=== PATIENT | male | born 1990 | race African-American/Black ===

== ENCOUNTER 2020-08-08 21:53 | Emergency (ER) | payer BC, OTHER, SELFPAY ==
[2020-08-08 22:10] VITALS: BP 134/74; PULSE 75; RESP 16; TEMP 37.2; O2SAT 97; BMI 45.4
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
--- NOTE | 2020-08-08 22:31 | XR_ITS ---
EXAMINATION: XR FOREARM, LEFT CLINICAL INFORMATION: Rule out foreign body in left forearm. Cut with glass COMPARISON: None TECHNIQUE: AP and lateral views of the left forearm were obtained. FINDINGS: The bones and soft tissues are normal. No fracture. Imaged portions of the elbow and wrist are unremarkable. No radiopaque foreign body seen. XR/XR forearm LT 2V IMPRESSION: No radiopaque foreign body seen, although many forms of glass are not radiopaque.
== END 2020-08-08 23:40 | disposition home or self-care (01) ==
PROVIDERS: Emergency Provider Emergency Medicine; PCP Internal Medicine
DX: S51.812A Laceration without foreign body of left forearm, initial encounter (principal); S50.812A Abrasion of left forearm, initial encounter; M79.632 Pain in left forearm; W25.XXXA Contact with sharp glass, initial encounter; Y93.9 Activity, unspecified; Y92.009 Unspecified place in unspecified non-institutional (private) residence as the place of occurrence of the external cause; Y99.9 Unspecified external cause status; Z23 Encounter for immunization
CPT/HCPCS: 73090; 90471; 90715; 99283; 99284

== ENCOUNTER 2020-08-19 19:13 | Emergency (ER) | payer BC, OTHER, SELFPAY ==
[2020-08-19 19:32] VITALS: BP 143/56; PULSE 77; RESP 18; TEMP 36.1; O2SAT 98; BMI 33.0
--- NOTE | 2020-08-19 20:23 | ED_ITS ---
HPI - Wound/Laceration General Chief Complaint: Wound/Laceration Stated Complaint: Staple removal Source: patient Mode of arrival: ambulatory Limitations: no limitations History of Present Illness HPI narrative: 29-year-old male with no significant past medical history presents to have 2 michael removed from his left arm. He has had no complaints, states that the wound is healing well, denies fevers, chills, and any other concerning symptoms. Related Data Allergies Allergy/AdvReac Type Severity Reaction Status Date / Time No Known Allergies Allergy Verified 08/08/20 22:31 Review of Systems Review of Systems: Constitutional: No Fever, No Chills ENT/Mouth: No Ear Pain, No Nasal Congestion, No sore throat Eyes: No Eye Pain, No Swelling, No Redness Cardiovascular: No Chest Pain, No SOB Respiratory: No Cough, No Sputum, No Dyspnea Gastrointestinal: No Nausea, No Vomiting, No Diarrhea, No Hematochezia, No Melena Genitourinary: No Dysuria, No Urinary Frequency, No Hematuria Musculoskeletal: No Myalgias Skin: No Skin Lesions, No rash Neuro: No Weakness, No Numbness, No Paresthesias, No Dizziness, No Headache Psych: No Anxiety, no Depression, no SI/HI Heme/Lymph: No Lymphadenopathy Endocrine: No Polyuria, No Polydipsia Yes all other systems are reviewed and are negative [facility] Past Medical History Attestation statement: The following information was validated with the patient. Medical History No known health problems Social History Social History Advance Directives: No Physical Exam Vital Signs: Vital Signs: Last Vital Signs Temp 97.0 F 08/19/20 19:32 Pulse 77 08/19/20 19:32 Resp 18 08/19/20 19:32 BP 143/56 H 08/19/20 19:32 Pulse Ox 98 08/19/20 19:32 Body Mass Index 33.0 Appearance: Alert. Oriented X3. No acute distress. Eyes: Pupils equal, round and reactive to light. ENT: Pharynx normal. Neck: Normal inspection. Neck supple. CVS: Normal heart rate and rhythm. Pulses normal. Respiratory: No respiratory distress. Breath sounds normal. Abdomen: Soft and nontender. Skin: Skin warm and dry. Normal skin color. Normal skin turgor. Extremities: No lower extremity edema. Neuro: No motor deficit. No sensory deficit. Course Course Course Narrative: 29-year-old male presents for staple removal. Two michael removed from the left proximal forearm. Patient tolerated procedure well. Wound well healed well approximated no indication of infection. No further care is needed. Patient verbalized understanding of and agrees to plan of care to discharge home. MDM - Wound/Laceration Differential Diagnosis Differential diagnosis: Likely laceration Medical Records Attestation: I reviewed the patient's medical records. Discharge Plan Discharge Clinical Impression: Encounter for removal of michael Patient Disposition: Home, Self-Care Instructions: Staple Care (ED) Additional Instructions: we removed 2 michael on your left arm. your wound has healed very well. No further care is needed at this time. Thank you for choosing this emergency department for evaluation. Please follow-up with primary care physician as needed. Return to the emergency department for any new, concerning, or worsening symptoms. Interventions: ED Discharge Assessment Last Done: 08/19/20 20:41 Discharge Date/Time: 08/19/20 20:45
== END 2020-08-19 20:45 | disposition home or self-care (01) ==
PROVIDERS: Emergency Provider Internal Medicine
DX: M79.602 Pain in left arm (principal); Z48.02 Encounter for removal of sutures
CPT/HCPCS: 99283

== ENCOUNTER 2021-02-12 19:40 | Emergency (ER) | payer OTHER, SELFPAY ==
--- NOTE | ~2021-02-12 | XR_ITS ---
EXAMINATION: PORTABLE CHEST 1 VIEW CLINICAL INFORMATION: Chest pain . COMPARISON: No recent pertinent prior studies are available for comparison. TECHNIQUE: Portable frontal view of the chest was obtained. FINDINGS: The lungs are hypoexpanded. No focal infiltrate, effusion, edema, or pneumothorax. Cardiac and mediastinal silhouettes are within normal limits for technique. No acute bony abnormality seen. XR/XR chest 1V IMPRESSION: No evidence of acute disease.
[2021-02-12 19:48] VITALS: BP 137/87; PULSE 96; RESP 20; TEMP 36.7; O2SAT 98; BMI 45.4
--- NOTE | 2021-02-12 21:31 | ECG_ITS ---
Test Reason : CHEST PAIN Blood Pressure : / mmHG Vent. Rate : 095 BPM Atrial Rate : 095 BPM P-R Int : 170 ms QRS Dur : 094 ms QT Int : 336 ms P-R-T Axes : 030 -32 007 degrees QTc Int : 422 ms Normal sinus rhythm Left axis deviation Minimal voltage criteria for LVH, may be normal variant Abnormal ECG No previous ECGs available Referred By: Serenity Tan Electronically Signed By:JOHNY LEBLANC MD
--- NOTE | 2021-02-12 21:34 | ED_ITS ---
HPI - Chest Pain General Chief Complaint: Chest Pain Stated Complaint: chest pain Time Seen by Provider: 02/12/21 21:09 Source: patient Mode of arrival: ambulatory History of Present Illness HPI narrative: 30-year-old male without significant past medical history presents with squeezing chest pain since last night that has gotten worse, no nradiating, no prior cardiac history, denies any family history of cardiac , no recent travel/calf swelling/pain. 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 Patient denies any trauma, lifting of heavy packages, and denies any improvement or worsening with change in position from sitting to lying down. However, pain does get worse with deep inspiration and movement. Patient did try [id number] Tylenol, 1 g, once this morning. Related Data Allergies Allergy/AdvReac Type Severity Reaction Status Date / Time No Known Allergies Allergy Verified 08/08/20 22:31 Review of Systems Review of Systems: Pertinent positives and negatives as stated in HPI 10 point review of systems is otherwise negative. PMFSH Past Medical History Source: nursing notes reviewed Medical History No known health problems Social History Social History Advance Directives: No Advance Directives Information Provided: Yes Physical Exam Vital Signs: Vital Signs: Last Vital Signs Temp 98.1 F 02/12/21 19:48 Pulse 96 02/12/21 19:48 Resp 20 02/12/21 19:48 BP 137/87 02/12/21 19:48 Pulse Ox 98 02/12/21 19:48 Body Mass Index 45.4 VITAL SIGNS: Reviewed. GENERAL: Well developed, well nourished, in no acute distress. HEAD: Normocephalic/atraumatic EYES: PERRLA, EOMI EARS: Ext canals without abnormality NOSE: Nares patent bilateral OROPHARYNX: no oral lesions noted, posterior pharynx clear NECK: Supple, no adenopathy LUNGS: Normal breath sounds. No adventitious sounds or accessory muscle use. SpO2<98> CARDIOVASCULAR: Regular rate and rhythm without noted murmurs ABDOMEN: Soft, non-tender, non-distended with bowel sounds. MUSCULOSKELETAL: No tenderness, deformities, or effusions noted on gross inspection. EXTREMITIES: No cyanosis, clubbing or edema. SKIN: Inspection of the skin reveals no rashes NEUROLOGIC: Alert and oriented x 4. Course Course Course Narrative: 30-year-old male with history and clinical presentation most consistent with costochondritis verses anterior chest wall muscle strain and low clinical suspicion for pericarditis or cardiopulmonary etiologies. Pain is in consistent with a gastritis/GERD etiology. On review of all investigations there are no acute findings and on re-evaluation patient reports a reduction pain from 05/06 down to 12/04. All results and findings were discussed with him at bedside the was discharged in stable condition. MDM - Chest Pain Lab Data Result diagrams: 02/12/21 21:54 02/12/21 21:54 Labs: Lab Results 02/12/21 02/12/21 02/12/21 Range/Units 21:54 21:54 21:54 WBC 11.9 H (4.8-10.8) X10*3/uL RBC 4.84 (4.60-5.80) X10*6/uL Hgb 14.2 (14.0-18.0) g/dl Hct 43.2 (42-52) % MCV 89.3 (80-98) fL MCH 29.3 (27.0-33.0) pg MCHC 32.9 (31.0-36.0) g/dl RDW 11.8 (11.0-16.0) % Plt Count 364 (160-400) X10*3/uL MPV 9.6 (9.4-12.4) fL Immature Gran % (Auto) 0.3 (0.0-0.4) % Neut % (Auto) 64.1 (45-73) % Lymph % (Auto) 26.6 (20-40) % [place] % (Auto) 7.4 (2-11) % Eos % (Auto) 1.2 (0-4) % Baso % (Auto) 0.4 (0-2) % Lymph # (Auto) 3.2 (1.2-4.9) X10*3/uL [place] # (Auto) 0.9 (0.1-1.2) X10*3/uL Eos # (Auto) 0.1 (0.0-0.4) X10*3/uL Baso # (Auto) 0.1 (0.0-0.2) X10*3/uL Abs Immat Gran (auto) 0.04 H (0.00-0.03) X10*3/uL Absolute Neuts (auto) 7.7 (2.0-8.3) X10*3/uL Absolute Nucleated RBC 0.000 (0.0-0.012) X10*3/uL Nucleated RBC % (auto) 0.0 (0.0-0.2) /100WBC PT 12.9 (10.8-13.0) SEC INR 1.1 (0.9-1.1) D-Dimer < 200 NG/ML Sodium 139 (135-145) mmol/L Potassium 4.1 (3.3-5.1) mmol/L Chloride 105 (96-108) mmol/L Carbon Dioxide 26 (22-29) mmol/L Anion Gap 12 (12-20) BUN 13 (9-16) mg/dL Creatinine 1.00 (0.5-1.4) mg/dL Estim Creat Clear Calc 162.2 Estimated GFR > 60 Random Glucose 93 (60-115) mg/dL Calcium 9.3 (8.4-10.2) mg/dL Total Bilirubin 0.5 (0.0-1.0) mg/dL AST 18 (5-37) U/L ALT 20 (0-40) U/L Alkaline Phosphatase 63 (39-117) U/L Troponin I High Sens (<3.5-35.0) ng/L Total Protein 7.0 (6.5-8.0) g/dL Albumin 4.2 (3.5-5.0) g/dL Lipase 26 (8-78) U/L / Range/Units 21:54 WBC (4.8-10.8) X10*3/uL RBC (4.60-5.80) X10*6/uL Hgb (14.0-18.0) g/dl Hct (42-52) % MCV (80-98) fL MCH (27.0-33.0) pg MCHC (31.0-36.0) g/dl RDW (11.0-16.0) % Plt Count (160-400) X10*3/uL MPV (9.4-12.4) fL Immature Gran % (Auto) (0.0-0.4) % Neut % (Auto) (45-73) % Lymph % (Auto) (20-40) % [place] % (Auto) (2-11) % Eos % (Auto) (0-4) % Baso % (Auto) (0-2) % Lymph # (Auto) (1.2-4.9) X10*3/uL [place] # (Auto) (0.1-1.2) X10*3/uL Eos # (Auto) (0.0-0.4) X10*3/uL Baso # (Auto) (0.0-0.2) X10*3/uL Abs Immat Gran (auto) (0.00-0.03) X10*3/uL Absolute Neuts (auto) (2.0-8.3) X10*3/uL Absolute Nucleated RBC (0.0-0.012) X10*3/uL Nucleated RBC % (auto) (0.0-0.2) /100WBC PT (10.8-13.0) SEC INR (0.9-1.1) D-Dimer NG/ML Sodium (135-145) mmol/L Potassium (3.3-5.1) mmol/L Chloride (96-108) mmol/L Carbon Dioxide (22-29) mmol/L Anion Gap (12-20) BUN (9-16) mg/dL Creatinine (0.5-1.4) mg/dL Estim Creat Clear Calc Estimated GFR Random Glucose (60-115) mg/dL Calcium (8.4-10.2) mg/dL Total Bilirubin (0.0-1.0) mg/dL AST (5-37) U/L ALT (0-40) U/L Alkaline Phosphatase (39-117) U/L Troponin I High Sens < 3.5 (<3.5-35.0) ng/L Total Protein (6.5-8.0) g/dL Albumin (3.5-5.0) g/dL Lipase (8-78) U/L ECG Data ECG #1: Attestation: I personally reviewed and interpreted this ECG as follows: Prior ECG tracings: not available for review Interpretation: Normal sinus rhythm, HR-95, no evidence of acute ischemia, DE/QRS/QTC are within normal limits. Discharge Plan Discharge Clinical Impression: Atypical chest pain, Costalchondritis Patient Disposition: Home, Self-Care Instructions: Costochondritis (ED) Additional Instructions: 1. Tylenol 1000 mg, orally, every 6 hours as needed for pain control. Do not exceed 4000 mg within 24 hours. 2. Ibuprofen 400 mg, orally with milk or food, every 6 hours as needed for pain control. 3. Lidocaine patch, these are available in every [facility], apply to area of maximal tenderness as directed on the outside packaging. 4. Please follow up with the primary care provider in the next 2-3 days for re- evaluation. Return to the emergency room should you experience any acute worsening of symptoms. Referrals: Karla Azevedo MD [Primary Care Provider] - 2 days (Re-evaluation after treated for suspected costochondritis.)
[2021-02-12] MEDS: Ketorolac Tromethamine 15 MG/ML VIAL IVPUSH (21:57)
[2021-02-12] MEDS: Acetaminophen 325 MG TABLET 975 MG PO (21:57)
[2021-02-12] MEDS: Lidocaine HCl Viscous 2 % 15 ML SOLUTION 10 ML MUCOUS MEM (21:57)
[2021-02-12] MEDS: Lidocaine 4 % Patch ADH..PATCH 1 PATCH TRANSDERMA (21:58)
[2021-02-12] MEDS: Magnesium Hydrox/Alum Hydrox 30 ML ORAL.SUSP PO (21:58)
[2021-02-12 21:59] LABS: MANUAL DIFF FLAG NO
[2021-02-12 22:00] LABS: Basophils Absolute Auto 0.1 X10*3/uL (0.0-0.2); Basophils Percent Auto 0.4 % (0-2); Eosinophils Absolute Auto 0.1 X10*3/uL (0.0-0.4); Eosinophils Percent Auto 1.2 % (0-4); Hematocrit 43.2 % (42-52); Hemoglobin 14.2 g/dl (14.0-18.0); Imm Gran Abs Auto 0.04 X10*3/uL (0.00-0.03); Imm Gran Pct Auto 0.3 % (0.0-0.4); Lymphocytes Absolute Auto 3.2 X10*3/uL (1.2-4.9); Lymphocytes Percent Auto 26.6 % (20-40); Mean Corpuscular HGB Conc 32.9 g/dl (31.0-36.0); Mean Corpuscular Hemoglobin 29.3 pg (27.0-33.0); Mean Corpuscular Volume 89.3 fL (80-98); Mean Platelet Volume 9.6 fL (9.4-12.4); Monocytes Absolute Auto 0.9 X10*3/uL (0.1-1.2); Monocytes Percent Auto 7.4 % (2-11); Neutrophils Absolute Auto 7.7 X10*3/uL (2.0-8.3); Neutrophils Percent Auto 64.1 % (45-73); Platelet Count 364 X10*3/uL (160-400); Red Blood Count 4.84 X10*6/uL (4.60-5.80); Red Cell Distribution Width 11.8 % (11.0-16.0); White Blood Count 11.9 X10*3/uL (4.8-10.8)
[2021-02-12 22:17] LABS: INTERNATIONAL NORM RATIO 1.1 (0.9-1.1); Prothrombin Time 12.9 SEC (10.8-13.0)
[2021-02-12 22:33] LABS: Alanine Aminotransferase 20 U/L (0-40); Albumin Level 4.2 g/dL (3.5-5.0); Alkaline Phosphatase 63 U/L (39-117); Anion Gap 12 (12-20); Aspartate Amino Transferase 18 U/L (5-37); Bilirubin Total 0.5 mg/dL (0.0-1.0); Blood Urea Nitrogen 13 mg/dL (9-16); Calcium 9.3 mg/dL (8.4-10.2); Carbon Dioxide 26 mmol/L (22-29); Chloride 105 mmol/L (96-108); Creatinine Clr Calc Pharmacy 162.2; Estimated Glomerular Filt Rate > 60; Glucose Random 93 mg/dL (60-115); Lipase 26 U/L (8-78); Potassium 4.1 mmol/L (3.3-5.1); Sodium 139 mmol/L (135-145)
[2021-02-12 22:39] LABS: Troponin-I High Sensitivity < 3.5 ng/L (<3.5-35.0)
[2021-02-12 23:13] LABS: D Dimer < 200 NG/ML
[2021-02-12 23:43] VITALS: PULSE 76; RESP 18
== END 2021-02-12 23:49 | disposition home or self-care (01) ==
PROVIDERS: Emergency Provider Student in an Organized Health Care Education/Training Program; PCP Internal Medicine
DX: R07.89 Other chest pain (principal); M94.0 Chondrocostal junction syndrome [Tietze]; Z79.899 Other long term (current) drug therapy
CPT/HCPCS: 36415; 71045; 80053; 83690; 84484; 85025; 85379; 85610; 93005; 96374; 99284; J1885

== ENCOUNTER 2021-04-02 23:37 | Inpatient (IN) | payer OTHER, SELFPAY ==
--- NOTE | ~2021-04-02 | CT_ITS ---
EXAMINATION: CT ABDOMEN AND PELVIS WITHOUT CONTRAST CLINICAL INFORMATION: Right upper quadrant pain COMPARISON: None TECHNIQUE: Multidetector volumetric imaging was performed from the superior aspect of the liver through the pubic symphysis. Sagittal and coronal reformatted images were obtained on the technologist's workstation. This CT examination was performed using dose optimization techniques as appropriate, variously including the following: *Automated exposure control *Adjustment of mA and/or kV according to patient size (this includes techniques or standardized protocols for targeted exams where dose is matched to indication/reason for exam; i.e. extremities or head) *Use of iterative reconstruction technique DLP: 1131 mGy-cm FINDINGS: LUNG BASES: The visualized lung bases are unremarkable. LIVER, GALLBLADDER, AND BILIARY TREE: The liver is normal in size, shape, and attenuation. No focal hepatic lesion or biliary ductal dilatation is present. The gallbladder is unremarkable with no evidence of radiopaque gallstones, gallbladder wall thickening, or obvious pericholecystic inflammatory changes. PANCREAS: Unremarkable. SPLEEN: Unremarkable. ADRENAL GLANDS: Unremarkable. KIDNEYS AND URETERS: The kidneys are normal in size, shape, and attenuation. A 1 cm exophytic water density mass arises from the right kidney consistent with a small cyst. No hydronephrosis, hydroureter, or calculi seen. No perinephric stranding. BLADDER: Unremarkable. GASTROINTESTINAL TRACT: Prior gastric surgery The small and large bowel are unremarkable. The appendix is unremarkable. ABDOMINAL WALL: No significant hernia is appreciated. LYMPH NODES: Some small shotty retroperitoneal lymph nodes are present but there is no retroperitoneal lymphadenopathy. VASCULAR: Unremarkable. PELVIC VISCERA: Prostate and seminal vesicles appear normal. OSSEOUS STRUCTURES: Unremarkable. CT/CT abdomen pelvis wo con IMPRESSION: 1. An etiology for the patient's right upper quadrant pain has not been found. No significant abnormality is detected. 2. Incidental note made of prior gastric surgery and a 1 cm simple right renal cyst
--- NOTE | ~2021-04-02 | US_ITS ---
EXAMINATION: US ABDOMEN LIMITED CLINICAL INFORMATION: Right upper quadrant pain.. COMPARISON: CT 04/02/2021 TECHNIQUE: Real-time imaging of the right upper quadrant abdominal viscera. FINDINGS: PANCREAS: The pancreatic head is unremarkable. The body and tail are obscured by gas. LIVER: Normal. The liver is normal in size. The liver contour is normal. Parenchymal echogenicity is normal. No focal hepatic lesion. There is no intrahepatic biliary duct dilatation seen. GALLBLADDER: Abnormal gallbladder. There is a [id number] sign suggesting a stone filled gallbladder. The gallbladder wall it is difficult to evaluate. This may measure up to 0.7 cm. The inventory control assistant describes a positive Bai's sign. COMMON BILE DUCT: Normal in caliber measuring 0.5 cm in diameter. RIGHT KIDNEY: Normal. No hydronephrosis. No renal calculi or focal parenchymal lesions. The kidney measures 12 cm in maximum dimension. FREE FLUID: None. US/US abdomen limited IMPRESSION: Appearance of a probable stone filled gallbladder. This finding in conjunction with the positive sonographic Bai's sign and potential wall thickening raise suspicion for cholecystitis.
[2021-04-02 23:41] VITALS: BP 134/66; PULSE 62; RESP 16; TEMP 36.6; O2SAT 98; BMI 45.9
--- NOTE | 2021-04-02 23:42 | ED.ABDPAIN ---
HPI - Abdominal Pain General Chief Complaint: Abdominal Pain Stated Complaint: ABD PAIN Time Seen by Provider: 04/02/21 23:42 Source: patient Mode of arrival: EMS Limitations: no limitations History of Present Illness HPI narrative: patient with no significant past medical history had supper at 20:00 was relaxed and watching TV at 23:00 noticed sudden onset of pain in right upper quadrant associated with nausea pain radiating to upper abdomen no urinary complaints no fever no chills patient never had similar pain in the past Related Data Allergies Allergy/AdvReac Type Severity Reaction Status Date / Time No Known Allergies Allergy Verified 08/08/20 22:31 Review of Systems Review of Systems Constitutional : No Weight loss, No Fever, No Chills ENT/Mouth : No sore throat, No Rhinorrhea Eyes: No Eye Pain, No Swelling Cardiovascular : No Chest Pain, no palpitations Respiratory : No Cough, No Sputum, no shortness of breath Gastrointestinal : + Nausea, No Vomiting, No Diarrhea, ++ abdominal Pain, no black stools Genitourinary : No Dysuria, No Urinary Frequency Musculoskeletal : No joint pain, No Myalgias, No Joint Swelling Skin : No Skin Lesions, No rash Neuro : No Weakness, No Numbness, No Dizziness, No Headache Psych : No Anxiety/Panic, No Depression Heme/Lymph: No Bruising, No Lymphadenopathy Endocrine : No Polyuria, No Polydipsia All other systems reviewed and are negative Physical Exam Vital Signs: Vital Signs: Last Vital Signs Temp 97.8 F 04/02/21 23:41 Pulse 62 04/02/21 23:41 Resp 16 04/03/21 02:05 BP 134/66 04/02/21 23:41 Pulse Ox 98 04/02/21 23:41 Body Mass Index 45.9 Appearance: Alert. Oriented X3. in moderate distress. Eyes: PERRLA, No Nystagmus ENT: Pharynx normal. Oral Mucosa moist Neck: Normal inspection. Neck supple. CVS: Normal heart rate and rhythm. Pulses normal. Respiratory: No respiratory distress. Equal air entry bilateral, no wheezing/rales/rhonchi Abdomen: Soft and tender right upper quadrant ,Bai sign positive with guarding. Bowel sounds are present, no mass palpable, no CVA tenderness Skin: Skin warm and dry. Normal skin color. Normal skin turgor. Extremities: No lower extremity edema. No calf tenderness Neuro: Oriented X 3. No motor deficit. No sensory deficit.No cerebellar signs , cranial nerves II-XII intact MDM - Abdominal Pain MDM Narrative Medical decision making narrative: patient with right upper quadrant pain clinically cholecystitis with positive Bai sign CT scan was done which was negative for gallstones, bedside ultrasound done by myself showed impacted stones in the gallbladder. Official ultrasound of gallbladder also shows impacted gallstones with 0.7 cm wall thickening without any significant fluid collection patient still complaining of pain on palpation. Case discussed with Dr. Burns will admit the patient for cholecystectomy in the morning. Patient white count was slightly elevated ALT 84 AST was 47 with normal bilirubin. Lab Data Attestation: I reviewed the patient's lab results. Result diagrams: 04/03/21 00:12 04/03/21 00:12 Labs: Lab Results 04/03/21 04/03/21 Range/Units 00:12 00:12 WBC 12.4 H (4.8-10.8) X10*3/uL RBC 4.70 (4.60-5.80) X10*6/uL Hgb 13.9 L (14.0-18.0) g/dl Hct 41.5 L (42-52) % MCV 88.3 (80-98) fL MCH 29.6 (27.0-33.0) pg MCHC 33.5 (31.0-36.0) g/dl RDW 11.7 (11.0-16.0) % Plt Count 354 (160-400) X10*3/uL MPV 9.4 (9.4-12.4) fL Immature Gran % (Auto) 0.2 (0.0-0.4) % Neut % (Auto) 78.0 H (45-73) % Lymph % (Auto) 16.3 L (20-40) % [place] % (Auto) 3.5 (2-11) % Eos % (Auto) 1.7 (0-4) % Baso % (Auto) 0.3 (0-2) % Lymph # (Auto) 2.0 (1.2-4.9) X10*3/uL [place] # (Auto) 0.4 (0.1-1.2) X10*3/uL Eos # (Auto) 0.2 (0.0-0.4) X10*3/uL Baso # (Auto) 0.0 (0.0-0.2) X10*3/uL Abs Immat Gran (auto) 0.03 (0.00-0.03) X10*3/uL Absolute Neuts (auto) 9.7 H (2.0-8.3) X10*3/uL Absolute Nucleated RBC 0.000 (0.0-0.012) X10*3/uL Nucleated RBC % (auto) 0.0 (0.0-0.2) /100WBC Sodium 141 (135-145) mmol/L Potassium 3.9 (3.3-5.1) mmol/L Chloride 105 (96-108) mmol/L Carbon Dioxide 27 (22-29) mmol/L Anion Gap 13 (12-20) BUN 12 (9-16) mg/dL Creatinine 1.08 (0.5-1.4) mg/dL Estim Creat Clear Calc 146.7 Estimated GFR > 60 Random Glucose 100 (60-115) mg/dL Calcium 9.3 (8.4-10.2) mg/dL Total Bilirubin 0.8 (0.0-1.0) mg/dL Direct Bilirubin 0.5 (0.0-0.5) mg/dL AST 84 H (5-37) U/L ALT 47 H (0-40) U/L Alkaline Phosphatase 69 (39-117) U/L Total Protein 6.7 (6.5-8.0) g/dL Albumin 4.0 (3.5-5.0) g/dL Lipase 28 (8-78) U/L Discharge Plan Discharge Clinical Impression: Acute calculous cholecystitis Patient Disposition: Admitted As Inpatient [facility] Past Medical History Medical History No known health problems Social History Social History Advance Directives: No Advance Directives Information Provided: No
[2021-04-03] VITALS (15 sets, daily range): BP systolic 116–162; BP diastolic 57–93; PULSE 51–94; RESP 14–20; TEMP 36–37.3; O2SAT 93–100; BMI 45.9
[2021-04-03] MEDS: ondansetron HCL 4 MG/2 ML VIAL IVPUSH (00:15)
[2021-04-03 00:16] LABS: MANUAL DIFF FLAG NO
[2021-04-03 00:17] LABS: Basophils Percent Auto 0.3 % (0-2); Eosinophils Absolute Auto 0.2 X10*3/uL (0.0-0.4); Eosinophils Percent Auto 1.7 % (0-4); Hematocrit 41.5 % (42-52); Hemoglobin 13.9 g/dl (14.0-18.0); Imm Gran Abs Auto 0.03 X10*3/uL (0.00-0.03); Imm Gran Pct Auto 0.2 % (0.0-0.4); Lymphocytes Percent Auto 16.3 % (20-40); Mean Corpuscular HGB Conc 33.5 g/dl (31.0-36.0); Mean Corpuscular Hemoglobin 29.6 pg (27.0-33.0); Mean Corpuscular Volume 88.3 fL (80-98); Mean Platelet Volume 9.4 fL (9.4-12.4); Monocytes Absolute Auto 0.4 X10*3/uL (0.1-1.2); Monocytes Percent Auto 3.5 % (2-11); Neutrophils Absolute Auto 9.7 X10*3/uL (2.0-8.3); Platelet Count 354 X10*3/uL (160-400); Red Cell Distribution Width 11.7 % (11.0-16.0); White Blood Count 12.4 X10*3/uL (4.8-10.8)
[2021-04-03] MEDS: Morphine Sulfate 4 MG/ML CARTRIDGE IVPUSH ×2 (00:19→06:11)
[2021-04-03] MEDS: 0.9 % Sodium Chloride 1,000 ML 999 ML IVCONT (00:21)
[2021-04-03 00:38] LABS: Alanine Aminotransferase 47 U/L (0-40); Alkaline Phosphatase 69 U/L (39-117); Anion Gap 13 (12-20); Aspartate Amino Transferase 84 U/L (5-37); Bilirubin Direct 0.5 mg/dL (0.0-0.5); Bilirubin Total 0.8 mg/dL (0.0-1.0); Blood Urea Nitrogen 12 mg/dL (9-16); Calcium 9.3 mg/dL (8.4-10.2); Carbon Dioxide 27 mmol/L (22-29); Chloride 105 mmol/L (96-108); Creatinine Clr Calc Pharmacy 146.7; Estimated Glomerular Filt Rate > 60; Glucose Random 100 mg/dL (60-115); Lipase 28 U/L (8-78); Potassium 3.9 mmol/L (3.3-5.1); Sodium 141 mmol/L (135-145); Total Protein 6.7 g/dL (6.5-8.0)
[2021-04-03 04:33] LABS: INTERNATIONAL NORM RATIO 1.2 (0.9-1.1); Prothrombin Time 13.4 SEC (9.9-13.0)
[2021-04-03] MEDS: Piperacillin Sodium/Tazobactam 3.375 GM in 0.9 % Sodium Chloride 50 ML IV ×2 (04:46→09:37)
[2021-04-03] MEDS: 0.9 % Sodium Chloride 1,000 ML 100 ML IVCONT ×3 (04:46→23:16)
[2021-04-03 04:54] LABS: COVID-19 Test Negative (Negative); IDNOW Serial# 9DD0AD1C
--- NOTE | 2021-04-03 05:26 | PC.NURSE ---
nurse to nurse report given to Saurabh HOWELL
--- NOTE | 2021-04-03 06:23 | PC.NURSE ---
cristal burks with $452 dollar was delivered to security 04/03/21 06:25
--- NOTE | 2021-04-03 08:36 | MHC.CM.PN ---
PATIENT IS FULLY INDEPENDENT WITH ALL ADLS. NO DME OR VNA SERVICES. HE IS EMPLOYED AND DRIVES SELF WHERE NEEDED. HE DOES NOT HAVE A PCP AND [facility] PROVIDER INFORMATION GIVEN SO THAT PATIENT CAN REVIEW FOR CHOICE OF PROVIDERS. CASE MANAGEMENT FOLLOWING FOR DC PLANS.
--- NOTE | 2021-04-03 09:09 | PHA.MEDREC ---
Pharmacy Consult ? Medication Reconciliation Pharmacy has completed the medication reconciliation. PT reports no home meds.
[2021-04-03] MEDS: Acetaminophen 325 MG TABLET 650 MG PO ×2 (09:43→15:13)
[2021-04-03] MEDS: Lactated Ringers 500 ML 20 ML IVCONT (10:15)
--- NOTE | 2021-04-03 10:39 | P.CONAN_ITS ---
[facility] Active Problems Active Problems: All Active Problems (Updated 04/03/21 @ 03:59 by Sheldon Hamilton MD) Acute calculous cholecystitis (Acute) Past Medical History Medical History No known health problems Social History Social History Household Members: Spouse Housing: House Do you presently have visiting nurse or other home services: No Patient Tobacco Use Status: Never used Tobacco Second Hand Smoke Exposure: No Use of substances other than those prescribed or required for medical reasons: No Currently Displaying Signs/Symptoms of Drug Intoxication Withdrawal: No Have you been hit, kicked, punched, or otherwise hurt by someone within the past year? If so, by whom?: No Do you feel safe in your current relationship?: No Is there a partner from a previous relationship who is making you feel unsafe now?: No Are you DNR?: No Advance Directives: No Advance Directives Information Provided: No Advance Directives on File: No Do you have thoughts of harming others: None Do you have a plan to hurt others: No Plan Recently lost weight without trying: No How much weight loss: 2-13 pounds Eating poorly because of decreased appetite: No Nutrition screen score: 1 Nutrition Risks: No Nutritional Risk Poor oral hygiene: No service: No Current occupational status: employed Meds Allergies Allergy/AdvReac Type Severity Reaction Status Date / Time No Known Allergies Allergy Verified 08/08/20 22:31 Active Medications: Current Medications Generic Name Dose Route Start Last Admin Trade Name Freq PRN Reason Stop Dose Admin Acetaminophen 650 mg 04/03/21 03:52 04/03/21 09:43 Acetaminophen 325 Mg Tablet PO 650 mg Q4H PRN Administration Fever Diphenhydramine HCl 25 mg 04/03/21 03:52 Diphenhydramine Hcl 25 Mg Tablet PO Q4H PRN itching Piperacillin Sod/Tazobactam 50 mls @ 100 mls/hr 04/03/21 04:00 04/03/21 10:24 Sod 3.375 gm/ Sodium Chloride IV Infused Q6H KRISTA Infusion Sodium Chloride 1,000 mls @ 100 mls/hr 04/03/21 04:00 04/03/21 10:39 Ns IVCONT 0 mls/hr .Q10H KRISTA Infusion Morphine Sulfate 2 mg 04/03/21 03:52 Morphine Sulfate 2 Mg/Ml Cartridge IVPUSH Q3H PRN Pain, Moderate (Pain Scale 4-6 Morphine Sulfate 4 mg 04/03/21 03:52 04/03/21 06:11 Morphine Sulfate 4 Mg/Ml Cartridge IVPUSH 4 mg Q3H PRN Administration Pain, Severe (Pain Scale 7-10) Ondansetron HCl 4 mg 04/03/21 03:52 Ondansetron Hcl 4 Mg/2 Ml Vial IVPUSH Q4H PRN Nausea Oxycodone HCl 5 mg 04/03/21 03:52 Oxycodone Hcl Immed Release 5 Mg Tablet PO Q3H PRN Pain, Moderate (Pain Scale 4-6 Oxycodone HCl 10 mg 04/03/21 03:52 Oxycodone Hcl Immed Release 5 Mg Tablet PO Q3H PRN Pain, Severe (Pain Scale 7-10) Sodium Chloride 3 ml 04/03/21 08:00 04/03/21 07:17 0.9 % Sodium Chloride Flush 3 Ml Syringe IVFLUSH Not Given QSHIFT [facility] Home Medications Medication Instructions Recorded Confirmed Last Taken Type No Known Home Meds 04/03/21 04/03/21 Unknown History Exam Exam Date and Time: April 03, 2021 1039 Height,Weight and Vital Signs: Height 5 ft 10 in Weight 145.15 kg Last Vital Signs Temp 99.1 F 04/03/21 10:12 Pulse 79 04/03/21 10:12 Resp 16 04/03/21 10:12 BP 116/57 L 04/03/21 10:12 Pulse Ox 94 04/03/21 10:12 Pertinent Lab Results Pertinent Lab Results: Laboratory Tests 04/03/21 04/03/21 04/03/21 00:12 00:12 04:23 WBC 12.4 H RBC 4.70 Hgb 13.9 L Hct 41.5 L MCV 88.3 MCH 29.6 MCHC 33.5 RDW 11.7 Plt Count 354 MPV 9.4 Immature Gran % (Auto) 0.2 Neut % (Auto) 78.0 H Lymph % (Auto) 16.3 L [place] % (Auto) 3.5 Eos % (Auto) 1.7 Baso % (Auto) 0.3 Lymph # (Auto) 2.0 [place] # (Auto) 0.4 Eos # (Auto) 0.2 Baso # (Auto) 0.0 Abs Immat Gran (auto) 0.03 Absolute Neuts (auto) 9.7 H Absolute Nucleated RBC 0.000 Nucleated RBC % (auto) 0.0 PT 13.4 H INR 1.2 H Sodium 141 Potassium 3.9 Chloride 105 Carbon Dioxide 27 Anion Gap 13 BUN 12 Creatinine 1.08 Estim Creat Clear Calc 146.7 Estimated GFR > 60 Random Glucose 100 Calcium 9.3 Total Bilirubin 0.8 Direct Bilirubin 0.5 AST 84 H ALT 47 H Alkaline Phosphatase 69 Total Protein 6.7 Albumin 4.0 Lipase 28 COVID-19 ([facility]) COVID-19 Clin Com Blood Type Antibody Screen 04/03/21 04/03/21 04:29 06:46 WBC RBC Hgb Hct MCV MCH MCHC RDW Plt Count MPV Immature Gran % (Auto) Neut % (Auto) Lymph % (Auto) [place] % (Auto) Eos % (Auto) Baso % (Auto) Lymph # (Auto) [place] # (Auto) Eos # (Auto) Baso # (Auto) Abs Immat Gran (auto) Absolute Neuts (auto) Absolute Nucleated RBC Nucleated RBC % (auto) PT INR Sodium Potassium Chloride Carbon Dioxide Anion Gap BUN Creatinine Estim Creat Clear Calc Estimated GFR Random Glucose Calcium Total Bilirubin Direct Bilirubin AST ALT Alkaline Phosphatase Total Protein Albumin Lipase COVID-19 ([facility]) Negative COVID-19 Clin Com See Note Blood Type O Positive Antibody Screen NEGATIVE Airway Mallampati Class: III TM Dist: >3cm Neck ROM: Full Assessment and Plan Assessment Anesthesia Assessment: Anesthesia Plan Discussed and Chart Reviewed Final Anesthetic Review NPO: Yes ASA Class: III Final Preanesthetic Review: No Changes in Pt Med Stat, Meds/Allgs Chart Reviewed, Consent Obtained/Reviewed and Anes Risks/Benef Reviewed Patient Risk: Intermediate Procedure Risk: Intermediate Assessment/Block/Sedation in SS: Assess/Block/Sedation-SS Anesthetic Plan Anesthetic Plan: GA Disposition: Standard PACU
--- NOTE | 2021-04-03 11:30 | P.HPGS_ITS ---
History of Present Illness History of Present Illness Date of Service: 04/03/21 Chief complaint: Cholecystitis Narrative: TANIA FORREST is a 30 year old male Who presented to the emergency department last evening after experiencing sudden onset right upper quadrant pain at 10 p.m.. This began 2 hours after he had eaten a meal of mashed potatoes and butter. He denies any prior history of pain of this sort. He reports the pain felt like a stomach ache but increased in intensity over the next several hours until the pain was a 10/10 at its greatest intensity. At around 11 p.m. the patient came to the emergency department when the pain did not resolve. Patient currently reports a pain level of 0/10 after receiving pain medications. He reports 1 episode of vomiting. He reports normal bowel movements and denies any urinary symptoms. Patient was seen in the emergency department had a CT scan which showed possible thickening of the gallbladder wall but no evidence of gallstones. Patient then had a bedside ultrasound of the right upper quadrant performed by the emergency medicine physician which showed multiple gallstones within the gallbladder and he was noted to have a positive Bai sign on exam. Patient denies any fever, chills, shortness of breath, chest pain. Review of Systems Constitutional: Constitutional: Denies chills, Denies difficulty sleeping, Denies excessive sweating, Denies fatigue, Denies fever(s), Reports headache(s), Denies night sweats, Denies weakness and Denies weight loss Eyes: Eyes: Denies blurry vision, Denies diplopia, Denies eye discharge and Reports requires corrective lenses ENT: Reports Normal hearing present, Denies change in voice, Reports headache(s), Denies neck mass, Denies sore throat, Denies throat swelling and Denies tongue swelling Cardiovascular: Cardiovascular: Denies chest pain, Denies chest pain at rest, Denies chest pain with activity, Denies edema, Denies leg edema and Denies dyspnea on exertion Respiratory: Respiratory: Denies cough, Denies excessive phlegm production, Denies dyspnea on exertion, Denies stridor and Denies wheezing Gastrointestinal: Gastrointestinal: Reports abdominal pain, Denies melena, Denies bloating, Denies hematochezia, Denies constipation, Denies heartburn, Denies nausea and Denies vomiting Genitourinary: Genitourinary: Denies hematuria, Denies dysuria, Denies urinary hesitancy, Denies urinary incontinence and Denies urinary urgency Musculoskeletal: Musculoskeletal: Reports back pain, Denies arthralgias and Denies muscle weakness Integumentary/Breasts: Skin/Breast: Denies breast swelling, Denies breast pain, Denies breast mass, Denies change in pigmentation, Denies new lesions and Denies rash Neurologic: Reports Normal hearing present, Denies confusion, Reports headache(s), Denies lack of coordination, Denies focal weakness, Denies paresthesias and Denies weakness Psychiatric: Psychiatric: Denies anxiety, Denies confusion and Denies depression Endocrine: Endocrine: Denies cold intolerance, Denies excessive sweating and Denies fatigue Hematologic/Lymphatic: Hematologic/Lymphatic: Denies easy bleeding, Denies easy bruising and Denies lymphadenopathy Allergic/Immunologic: Allergic/Immunologic: Denies urticaria, Denies throat swelling, Denies tongue swelling and Denies wheezing PMFSH Past Medical History Medical History (Updated 04/03/21 @ 11:35 by Minal Cormier MD) No known health problems Family History Family History (Updated 04/03/21 @ 11:37 by Minal Cormier MD) Mother No problems noted. Father No problems noted. Sister No problems noted. Sister No problems noted. Brother No problems noted. Brother No problems noted. Brother No problems noted. Surgical History Surgical History (Updated 04/03/21 @ 11:35 by Minal Cormier MD) History of sleeve gastrectomy Social History Social History (Updated 04/03/21 @ 11:37 by Minal Cormier MD) Household Members: Spouse Housing: House Do you presently have visiting nurse or other home services: No Alcohol intake: current Alcohol intake frequency: holidays/special occasions only Patient Tobacco Use Status: Never used Tobacco Second Hand Smoke Exposure: No Use of substances other than those prescribed or required for medical reasons: No Currently Displaying Signs/Symptoms of Drug Intoxication Withdrawal: No Have you been hit, kicked, punched, or otherwise hurt by someone within the past year? If so, by whom?: No Do you feel safe in your current relationship?: No Is there a partner from a previous relationship who is making you feel unsafe now?: No Are you DNR?: No Advance Directives: No Advance Directives Information Provided: No Advance Directives on File: No Do you have thoughts of harming others: None Do you have a plan to hurt others: No Plan Recently lost weight without trying: No How much weight loss: 2-13 pounds Eating poorly because of decreased appetite: No Nutrition screen score: 1 Nutrition Risks: No Nutritional Risk Poor oral hygiene: No service: No Current occupational status: employed Meds Allergies Allergy/AdvReac Type Severity Reaction Status Date / Time No Known Allergies Allergy Verified 04/03/21 11:38 Active Medications: Current Medications Generic Name Dose Route Start Last Admin Trade Name Freq PRN Reason Stop Dose Admin Acetaminophen 650 mg 04/03/21 03:52 04/03/21 09:43 Acetaminophen 325 Mg Tablet PO 650 mg Q4H PRN Administration Fever Diphenhydramine HCl 25 mg 04/03/21 03:52 Diphenhydramine Hcl 25 Mg Tablet PO Q4H PRN itching Fentanyl 50 mcg 04/03/21 10:43 Fentanyl Citrate/Pf 100 Mcg/2 Ml Vial IVPUSH Q5M PRN Pain, Severe (Pain Scale 7-10) Piperacillin Sod/Tazobactam 50 mls @ 100 mls/hr 04/03/21 04:00 04/03/21 10:24 Sod 3.375 gm/ Sodium Chloride IV Infused Q6H KRISTA Infusion Sodium Chloride 1,000 mls @ 100 mls/hr 04/03/21 04:00 04/03/21 10:39 Ns IVCONT 0 mls/hr .Q10H KRISTA Infusion Lactated Ringer's 500 mls @ 20 mls/hr 04/03/21 11:00 04/03/21 10:15 Lr IVCONT 20 mls/hr .Q24H KRISTA Administration Morphine Sulfate 2 mg 04/03/21 03:52 Morphine Sulfate 2 Mg/Ml Cartridge IVPUSH Q3H PRN Pain, Moderate (Pain Scale 4-6 Morphine Sulfate 4 mg 04/03/21 03:52 04/03/21 06:11 Morphine Sulfate 4 Mg/Ml Cartridge IVPUSH 4 mg Q3H PRN Administration Pain, Severe (Pain Scale 7-10) Ondansetron HCl 4 mg 04/03/21 03:52 Ondansetron Hcl 4 Mg/2 Ml Vial IVPUSH Q4H PRN Nausea Ondansetron HCl 4 mg 04/03/21 10:43 Ondansetron Hcl 4 Mg/2 Ml Vial IVPUSH ONCE PRN Nausea and Vomiting Oxycodone HCl 5 mg 04/03/21 03:52 Oxycodone Hcl Immed Release 5 Mg Tablet PO Q3H PRN Pain, Moderate (Pain Scale 4-6 Oxycodone HCl 10 mg 04/03/21 03:52 Oxycodone Hcl Immed Release 5 Mg Tablet PO Q3H PRN Pain, Severe (Pain Scale 7-10) Oxycodone HCl 5 mg 04/03/21 10:43 Oxycodone Hcl Immed Release 5 Mg Tablet PO ONCE PRN Pain, Severe (Pain Scale 7-10) Sodium Chloride 3 ml 04/03/21 08:00 04/03/21 07:17 0.9 % Sodium Chloride Flush 3 Ml Syringe IVFLUSH Not Given QSHIFT [facility] Home Medications Medication Instructions Recorded Confirmed Last Taken Type No Known Home Meds 04/03/21 04/03/21 Unknown History Physical Exam Vital Signs: Vital Signs: Last Vital Signs Temp 99.1 F 04/03/21 10:12 Pulse 79 04/03/21 10:12 Resp 16 04/03/21 10:12 BP 116/57 L 04/03/21 10:12 Pulse Ox 94 04/03/21 10:12 Body Mass Index 45.9 Const: General: cooperative, healthy appearing, comfortable and no acute distress; No confusion Nutritional Appearance: average body habitus and well nourished Orientation/consciousness: No confusion HENMT: Head: Yes normal to inspection, Yes normocephalic and Yes atraumatic Ears: hearing grossly normal bilaterally Mouth: Normal oral and palatal mucosa present Teeth and gingiva: dentition normal Throat: Yes posterior oropharynx normal Eyes: General: appearance normal, both eyes and all related structures Eyelids: Yes eyelids normal EOM: EOMs intact bilaterally Neck: Neck: Yes normal visual inspection, Yes full ROM, Yes trachea midline and Yes no JVD Thyroid: Thyroid normal Lymphatic: no lymphadenopathy noted Resp: Effort & Inspection: normal respiratory effort and able to speak in complete sentences Auscultation: clear to auscultation bilaterally Cardio: Jugular venous distension: no JVD Rate: regular rate Heart sounds: S1 normal heart sound present, S2 normal heart sound present, no click, no gallops and no murmurs GI: Inspection: Yes normal to inspection, No distended, No incision and Yes obesity Palpation (GI): Soft to palpation, Tenderness to palpation present (GI) ( minimal tenderness to deep palpation in the right upper quadrant), no guarding, not rigid, no hernias and no masses Percussion: Yes normal to percussion Rectal Exam - Male: Yes deferred Skin: Rashes: no rashes Neuro: General: No confusion Cranial nerves: Yes Normal hearing present Extrem: General: Yes normal to inspection, Yes full ROM, Yes no clubbing, cyanosis or edema and Yes no calf tenderness Results Results Labs: Short CBC 04/03/21 Range/Units 00:12 WBC 12.4 H (4.8-10.8) X10*3/uL Hgb 13.9 L (14.0-18.0) g/dl Hct 41.5 L (42-52) % Plt Count 354 (160-400) X10*3/uL BMP 04/03/21 00:12 Sodium 141 Potassium 3.9 Chloride 105 Carbon Dioxide 27 BUN 12 Creatinine 1.08 Calcium 9.3 Liver Function 04/03/21 Range/Units 00:12 Total Bilirubin 0.8 (0.0-1.0) mg/dL Direct Bilirubin 0.5 (0.0-0.5) mg/dL AST 84 H (5-37) U/L ALT 47 H (0-40) U/L Alkaline Phosphatase 69 (39-117) U/L Albumin 4.0 (3.5-5.0) g/dL Assessment and Plan (1) Acute calculous cholecystitis: Status: Acute this is a 30-year-old gentleman with right upper quadrant pain and ultrasound documenting multiple stones within the gallbladder and a history that is fitting of acute cholecystitis. Patient has a mild white blood cell count but liver function tests are relatively normal. Patient will be taken to the operating room for a laparoscopic possible open cholecystectomy to treat biliary colic and likely cholecystitis. Risks benefits and alternatives were discussed with the patient he agrees to proceed. Patient has slightly increased perioperative risk given his level of morbid obesity. Quality Stroke Does the patient have a stroke diagnosis?: No VTE Prior VTE?: No VTE Risk Level:: Surgical - moderate VTE Device Contraindication: N/A - Device Ordered VTE Drug Contraindication: Treatment Not Indicated Procedures Date of Service Date of Service: 04/03/21
--- NOTE | 2021-04-03 12:50 | PM.OP ---
Brief Operative Note Date of Service: 04/03/21 Pre-op diagnosis: Acute cholecystitis and cholelithiasis Post-op diagnosis: same Procedure: laparoscopic cholecystectomy Implants: surgical clips Surgeon: Minal Cormier MD Anesthesia: GETA Was an Food Preservation Scientist used for this Procedure?: No Estimated blood loss (mL): 10 Pathology: other ( gallbladder) Condition: stable Disposition: PACU
--- NOTE | 2021-04-03 12:51 | W.PM.OPN ---
Operative Note Operative Note Date of Service: 04/03/21 Narrative: Patient was brought into the operating room, placed on operating table in the supine position. Normal DVT prophylaxis was instituted. Patient received 2 g of IV cefotetan preoperatively. General anesthesia was induced. The abdomen was prepped and draped in the normal sterile fashion using ChloraPrep. A safety time-out was performed. Next a mixture of 1% lidocaine with epinephrine and 0.25% Marcaine plain was used to anesthetize the planned incision site in the infraumbilical position. A 11. Scalpel was used to make a 2 cm supraumbilical transverse surgical incision through which the subcutaneous tissues were dissected down to level the fascia. The fascia was grasped did between 2 Oliver clamps and entered using a 11. Scalpel for about 1 cm vertically. An 0 Vicryl suture was placed on either side of the open fascia. A finger was used to bluntly gain access to the intra-abdominal cavity. A 12 mm Weathers trocar was introduced into the abdomen and secured to the abdominal wall using sutures on the fascia. The abdomen was insufflated to 15 mmHg. Next a 5 mm 30 degree laparoscoped was introduced into the abdomen and used to survey the abdominal cavity which was normal. Next 3 additional 5 mm ports were placed. One port was placed in the epigastrium to the right of the falciform ligament, 2 ports were placed in the right upper quadrant 1 laterally and 1 more medially. The patient was placed in reverse Trendelenburg and left side tilted down. A grasper was placed through the right lateral port and used to grasp the fundus of the gallbladder and retracted it cephalad. Another grasper was used to grasp the infundibulum of the gallbladder retracted inferior and laterally. We cleared the cystic artery and cystic duct circumferentially and the distal 1/3 of the gallbladder with the gallbladder fossa. This gave us the critical view of safety. We then placed 3 clips on the cystic duct distal to the gallbladder 1 clip on the cystic duct proximal to the gallbladder. We placed 1 clip on the cystic artery proximal to the gallbladder and 2 clips on the cystic artery distal to the gallbladder and transected both structures in between clips. We took the remainder of the gallbladder off the gallbladder fossa and placed in Endo-Catch bag and removed it from the abdomen. We then evaluated the gallbladder fossa it was hemostatic there was no evidence of any bile draining or any bleeding noted. The clips were in place on the cystic artery and cystic duct stumps. We then removed the 5 mm ports under direct vision there was no bleeding noted from these port sites. We desufflated the abdomen through the last remaining port and removed the last port and laparoscope. We reapproximated the fascial defect at the umbilicus using 2 [id number] 0 Vicryl sutures and tied the original fascial sutures over that closure. There was no residual fascial defect. We placed an additional amount of local anesthetic into the fascia closure site. We closed all skin incisions with a 4 Monocryl subcuticular stitch. We cleaned and dried the skin and applied Dermabond skin glue to all skin incisions. All counts were correct at the end the case there were no complications. The patient was awake and in stable condition prior to extubation and transfer to the recovery room.
--- NOTE | 2021-04-03 13:02 | PM.DS ---
DS: Providers Provider Date of Service: 04/03/21 Date of admission: 04/03/21 03:52 Date of discharge: 04/03/21 Primary care physician: Saqib Physician Admitting clinician: Minal Cormier Attending physician on admission: Minal Cormier Attending physician on discharge: Minal Cormier Discharging clinician: Minal Cormier DS: Diagnosis Discharge Diagnosis (1) Acute calculous cholecystitis: Status: Acute DS: Medications Discharge Medications Home Medications: Previous Rx's Medication Instructions Recorded docusate sodium [Colace] 100 mg PO BID #30 cap 04/03/21 oxycodone 5 mg PO Q4H PRN 7 Days #20 tab 04/03/21 DS: Summary Hospital Course Hospital Course: This is a 30-year-old gentleman who was admitted to the emergency department on 04/03/2021 with right upper quadrant pain and a ultrasound showing a gallbladder full of stones and thickened gallbladder wall consistent with acute cholecystitis. Patient was taken to the operating room for a laparoscopic cholecystectomy which was uneventful. Patient was sent back to the surgical floor and started on regular diet which he tolerated well and he was discharged home the same day. Time Spent with Patient Time attestation: Total time spent providing and/or coordinating discharge services: Discharge coordination time: Less than 30 minutes Quality: Stroke Does the patient have a stroke diagnosis?: No Physical Exam Vital Signs: Vital Signs: Last Vital Signs Temp 97.3 F 04/03/21 12:50 Pulse 94 04/03/21 12:50 Resp 16 04/03/21 12:50 BP 156/93 H 04/03/21 12:50 Pulse Ox 94 04/03/21 12:50 Body Mass Index 45.9 DS: Data Data Completed and Pending Pending studies at discharge: Pending at discharge 04/03/21 12:19 Surgical [PTH] Routine Labs on day of discharge: Laboratory Results - last 24 hr 04/03/21 04/03/21 04/03/21 00:12 00:12 04:23 WBC 12.4 H RBC 4.70 Hgb 13.9 L Hct 41.5 L MCV 88.3 MCH 29.6 MCHC 33.5 RDW 11.7 Plt Count 354 MPV 9.4 Immature Gran % (Auto) 0.2 Neut % (Auto) 78.0 H Lymph % (Auto) 16.3 L [place] % (Auto) 3.5 Eos % (Auto) 1.7 Baso % (Auto) 0.3 Lymph # (Auto) 2.0 [place] # (Auto) 0.4 Eos # (Auto) 0.2 Baso # (Auto) 0.0 Abs Immat Gran (auto) 0.03 Absolute Neuts (auto) 9.7 H Absolute Nucleated RBC 0.000 Nucleated RBC % (auto) 0.0 PT 13.4 H INR 1.2 H Sodium 141 Potassium 3.9 Chloride 105 Carbon Dioxide 27 Anion Gap 13 BUN 12 Creatinine 1.08 Estim Creat Clear Calc 146.7 Estimated GFR > 60 Random Glucose 100 Calcium 9.3 Total Bilirubin 0.8 Direct Bilirubin 0.5 AST 84 H ALT 47 H Alkaline Phosphatase 69 Total Protein 6.7 Albumin 4.0 Lipase 28 COVID-19 (ROZINA) COVID-19 [facility] Com Blood Type Antibody Screen 04/03/21 04/03/21 04:29 06:46 WBC RBC Hgb Hct MCV MCH MCHC RDW Plt Count MPV Immature Gran % (Auto) Neut % (Auto) Lymph % (Auto) [place] % (Auto) Eos % (Auto) Baso % (Auto) Lymph # (Auto) [place] # (Auto) Eos # (Auto) Baso # (Auto) Abs Immat Gran (auto) Absolute Neuts (auto) Absolute Nucleated RBC Nucleated RBC % (auto) PT INR Sodium Potassium Chloride Carbon Dioxide Anion Gap BUN Creatinine Estim Creat Clear Calc Estimated GFR Random Glucose Calcium Total Bilirubin Direct Bilirubin AST ALT Alkaline Phosphatase Total Protein Albumin Lipase COVID-19 (ROZINA) Negative COVID-19 [facility] Com See Note Blood Type O Positive Antibody Screen NEGATIVE Discharge Plan Discharge Patient Disposition: Home, Self-Care Discharge Diagnosis: acute cholecystitis and cholelithiasis Referrals: Physician,None [Primary Care Provider] - 1 Week Discharge Medications: New docusate sodium [Colace] 100 mg capsule 100 mg PO BID Qty: 30 RF: 1 oxycodone 5 mg tablet 5 mg PO Q4H PRN (Reason: pain) 7 Days Qty: 20 RF: 0 Discharge Orders: Discharge Order (Routine); Ordered 04/03/21 Ordered By: Minal Cormier Activity on Discharge: No heavy lifting Stand Alone Forms: Patient Portal Discharge page Activity Restrictions/Additional Instructions: patient should avoid all heavy lifting greater than 5-10 lb for the next 4 weeks. He may shower but should avoid all hot tubs, baths, swimming pools. Patient may resume normal diet. Patient should take Tylenol Extra Strength around the clock for pain control and may use oxycodone as needed for additional pain control. Patient should also obtain milk of magnesia in the case he has some postoperative constipation and does not moved his bowels for more than 2 days after surgery. Patient should follow up with Dr. Cormier in 2 weeks following discharge. He should call the office to schedule the appointment. The office number is [phone]. Patient should also call the office with any questions or concerns such as increasing abdominal pain, persistent nausea or vomiting, fever, chills, shortness of breath, chest pain, or leg pain or swelling. Care Plan Goals: return to baseline health Health Concerns: cholecystitis and morbid obesity Plan of Treatment: status post cholecystectomy. Patient should follow-up with his primary care doctor regarding weight loss. Assessment: Patient doing well status post cholecystectomy
--- NOTE | 2021-04-03 13:03 | MHC.CM.PN ---
PATIENT IS DISCHARGED HOME- SELF CARE. PATIENT HAS TRANSPORT HOME. RN AWARE OF PLAN.
[2021-04-03] MEDS: oxyCODONE HCl Immed Release 5 MG TABLET PO ×3 (15:13→23:16)
--- NOTE | 2021-04-03 16:51 | PC.NURSE ---
Patient returned from PACU post lap nicolas, patient drowsy, arousable, VSS. Patient tolerated a regular diet, OOB to bathroom, pain 5/10 medicated with oxycodone and tylenol. Discussed with patient discharge plan, patient was hesitant to be discharged today due to pain level and being drowsy. Dr. Kim made aware, patient to be discharged tomorrow morning.
[2021-04-03] MEDS: 0.9 % Sodium Chloride Flush 3 ML SYRINGE IVFLUSH (20:23)
[2021-04-04 03:38] VITALS: BP 113/59; PULSE 75; RESP 18; TEMP 36.1; O2SAT 93
[2021-04-04 07:12] VITALS: BP 128/61; PULSE 72; RESP 18; TEMP 36.1; O2SAT 95
[2021-04-04 08:00] VITALS: TEMP 36.1
[2021-04-04] MEDS: oxyCODONE HCl Immed Release 5 MG TABLET PO ×2 (08:02→10:48)
--- NOTE | 2021-04-04 11:08 | HO.POSTANES ---
Post Anesthesia Evaluation Post Anesthesia Evaluation Vital Signs: Vital Signs Temp Pulse Resp BP Pulse Ox 04/04/21 08:00 97.0 F 04/04/21 07:12 97.0 F 72 18 128/61 95 04/04/21 03:38 97 F 75 18 113/59 L 93 04/03/21 23:13 96.8 F 51 18 131/68 96 Anesthesia: General Endotracheal-GETA Mental Status: Awake Pain Control: Satisfactory Nausea/Vomiting: None Hydration: Adequate Anesthesia-Related Issues: No Anes. Related Issues
== END 2021-04-04 11:05 | disposition home or self-care (01) | DRG 263 ==
LOC: HO.ED 04-03 03:59 → HO.EDOVER 04-03 04:04 → HO.S3 04-03 05:11
PROVIDERS: Admitting Provider Surgery; Emergency Provider Internal Medicine; Visit Provider Surgery
PROC: 0FT44ZZ Resection of Gallbladder, Percutaneous Endoscopic Approach (ICD-10-PCS; CPT 47562; principal; 2021-04-03 11:00)
DX: K80.00 Calculus of gallbladder with acute cholecystitis without obstruction (principal); Z20.822 Contact with and (suspected) exposure to COVID-19; Z98.84 Bariatric surgery status
CPT/HCPCS: 36415; 74176; 76705; 80048; 80076; 83690; 85025; 85610; 86850; 86900; 86901; 87635; 88304; 99285; J1100; J1170; J2250; J2270; J2405; J2543; J3010

== ENCOUNTER → 2021-04-18 14:47 | Outpatient (BNVA) | payer OTHER, SELFPAY | PROVIDERS: Visit Provider Surgery | DX: Z90.49 Acquired absence of other specified parts of digestive tract (principal) | CPT/HCPCS: 99212 ==

== ENCOUNTER → 2023-03-03 12:27 | Outpatient (BNVA) | payer OTHER, SELFPAY | PROVIDERS: PCP Internal Medicine; Visit Provider Physician Assistant Surgical ==

== ENCOUNTER → 2023-03-31 13:39 | Outpatient (BNVA) | payer OTHER, SELFPAY | PROVIDERS: PCP Internal Medicine; Visit Provider Physician Assistant ==

== ENCOUNTER 2023-04-01 11:26 | Outpatient (REF) | payer OTHER, MEDICAID, SELFPAY ==
--- NOTE | ~2023-04-01 | XR_ITS ---
EXAMINATION: XR CHEST CLINICAL INFORMATION: Morbid (severe) obesity due to excess calories COMPARISON: Portable chest 02/12/2021 TECHNIQUE: 2 views of the chest were obtained. FINDINGS: No significant abnormality is noted involving the heart, lungs, mediastinum or soft tissues. No acute bony abnormality. XR/XR chest 2V IMPRESSION: No acute cardiopulmonary disease.
[2023-04-06 00:33] LABS: Zinc 60 mcg/dL (60-130)
[2023-04-06 14:24] LABS: Vitamin B1 11 nmol/L (8-30)
[2023-04-07 00:18] LABS: Vitamin A 49 mcg/dL (38-98)
== END 2023-04-01 11:27 | disposition home or self-care (01) ==
LOC: HO.XRAY 11:26
PROVIDERS: Visit Provider Physician Assistant
DX: Z01.818 Encounter for other preprocedural examination (principal); E66.01 Morbid (severe) obesity due to excess calories; Z90.49 Acquired absence of other specified parts of digestive tract
CPT/HCPCS: 36415; 71046; 80053; 80061; 82306; 82607; 82728; 82746; 83013; 83036; 83525; 83540; 83970; 84425; 84443; 84590; 84630; 85025; 86140; 93005

== ENCOUNTER 2023-04-07 09:27 | Outpatient (REF) | payer OTHER, MEDICAID, SELFPAY ==
--- NOTE | ~2023-04-07 | FL_ITS ---
EXAMINATION: XR FL UPPER GI WITH AIR CLINICAL INFORMATION: Morbid obesity. History of gastric sleeve 8 years ago. COMPARISON: None available. TECHNIQUE: Air-contrast upper GI examination. FINDINGS: There is normal apposition of the vocal cords while saying E. There is normal elevation of the soft palate while saying candy. Patient swallowed thin and thick barium and half-inch diameter barium tablet without difficulty. No nasopharyngeal reflux or tracheal aspiration identified. No Zenker's diverticulum is seen. There is normal esophageal motility without persistent stricture or mass. There is a small hiatal hernia present with free spontaneous gastroesophageal reflux to the level of the thoracic inlet which cleared slowly. Patient is status post gastric sleeve bypass surgery. No ulceration or mucosal abnormality was appreciated. There is no delay in gastric emptying. The duodenal bulb and sweep appeared unremarkable. FLUOROSCOPY TIME: 1.8 minutes. IMAGES: 14 images. DOSE: 24.753 Gy-cm2 (walton-centimeter squared). FL/FL upper GI w air IMPRESSION: Status post gastric sleeve surgery with small hiatal hernia and free spontaneous gastroesophageal reflux to the level of the thoracic inlet.
--- NOTE | ~2023-04-07 | US_ITS ---
EXAMINATION: US COMPLETE ABDOMEN WITH LIVER ELASTOGRAPHY CLINICAL INFORMATION: Obesity. COMPARISON: Abdominal ultrasound dated 04/03/2021; CT abdomen and pelvis dated 04/02/2021. TECHNIQUE: Real-time imaging of the abdominal viscera. Noninvasive ultrasound liver fibrosis assessment is performed using Pramod ElastPQ point quantification shear wave elastography (2D-SWE) with a C5-2 MHz transducer. Multiple elastography samples are obtained. FINDINGS: PANCREAS: Limited. The visualized pancreatic head and body are normal in appearance. The remainder of the pancreas is obscured from visualization by the overlying bowel gas. ABDOMINAL AORTA: The proximal, middle, and distal aortic segments are normal in caliber. INFERIOR VENA CAVA: Visualized portions are normal. LIVER: Normal. The liver demonstrates normal size, contour and echogenicity. No focal lesion or intrahepatic biliary duct dilatation. The right lobe measures 14.7 cm in length. The left lobe measures 7.6 cm in length. Portal flow is towards the liver (hepatopetal). Shear wave liver elastography median stiffness is 1.48 m/s (reference: normal median stiffness is 1.3 m/s or less). IQR/median stiffness to assess sampling precision is 0.14 (reference: good quality data set is IQR/median stiffness of 0.15 or less). GALLBLADDER: Surgically absent. COMMON BILE DUCT: Normal in caliber measuring 0.3 cm in diameter. RIGHT KIDNEY: Normal. No hydronephrosis. No renal calculi or focal parenchymal lesions. The kidney measures 11.6 cm in maximum dimension. LEFT KIDNEY: Normal. No hydronephrosis. No renal calculi or focal parenchymal lesions. The kidney measures 12.1 cm in maximum dimension. SPLEEN: Normal. The spleen measures 11.8 cm in maximum dimension. FREE FLUID: None. US/US abdomen comp w elastography IMPRESSION: 1. There is generalized increase in hepatic echotexture, consistent with fatty infiltration or hepatocellular disease. Please correlate clinically. No focal hepatic mass or intrahepatic biliary dilatation is seen. 2. Liver elastography: In the absence of other known clinical signs, measurements rule out compensated advanced chronic liver disease. If there are known clinical signs, further testing may be needed for confirmation. 3. The gallbladder is surgically absent. 4. Technically limited ultrasound examination of the pancreatic tail. REFERENCE: Society of Radiologists in Ultrasound Liver Stiffness Thresholds (2020): LIVER STIFFNESS THRESHOLDS: *Liver Stiffness equal or less than 1.3 m/s: High probability of being normal. *Liver Stiffness less than 1.7 m/s: In the absence of other known clinical signs, rules out compensated advanced chronic liver disease. *Liver Stiffness 1.7-2.1 m/s: Suggestive of compensated advanced chronic liver disease but need further test for confirmation. *Liver Stiffness over 2.1 m/s: Rules in compensated advanced chronic liver disease. *Liver Stiffness over 2.4 m/s: Suggestive of clinically significant portal hypertension. QUALITY OF DATA SET: *IQR/Median value equal or less than 0.15 implies a quality data set. *IQR/Median value over 0.15 implies a poor quality data set. SIGNIFICANT CHANGE FROM PRIOR EXAM: Significant change if liver stiffness measurement is 10% or greater from prior exam. OTHER CONSIDERATIONS: The stage of liver fibrosis may be overestimated in the setting of acute hepatitis, liver inflammation, elevated liver function tests, hepatic vascular congestion, obstructive cholestasis, non-fasting state, and infiltrative diseases such as amyloidosis and lymphoma. In some patients with NAFLD, the liver stiffness thresholds for compensated advanced chronic liver disease may be lower. In causes other than viral hepatitis and NAFLD, liver stiffness thresholds are not well established.
== END 2023-04-07 09:28 | disposition home or self-care (01) ==
LOC: HO.US 09:27
PROVIDERS: PCP Internal Medicine; Visit Provider Physician Assistant
DX: Z01.818 Encounter for other preprocedural examination (principal); E66.01 Morbid (severe) obesity due to excess calories; Z90.49 Acquired absence of other specified parts of digestive tract
CPT/HCPCS: 74246; 76705; 76981

== ENCOUNTER → 2023-04-07 09:57 | Outpatient (BNV) | payer OTHER, SELFPAY | PROVIDERS: PCP Internal Medicine; Visit Provider Radiology Diagnostic Radiology | DX: E66.9 Obesity, unspecified (principal); Z98.84 Bariatric surgery status | CPT/HCPCS: 74246 ==

== ENCOUNTER → 2023-04-20 10:15 | Outpatient (BNVA) | payer OTHER, SELFPAY | PROVIDERS: PCP Internal Medicine; Visit Provider Dietitian, Registered | DX: E66.3 Overweight (principal) | CPT/HCPCS: 97802 ==

== ENCOUNTER 2023-04-28 10:29 | Outpatient (AMB) | payer OTHER, SELFPAY ==
--- NOTE | 2023-04-28 10:02 | A.OFFVIS_ITS ---
Intake VS Expanded 04/28/23 10:37 Height 5 ft 10 in Weight 329 lb 9.6 oz BMI 47.3 BP 137/71 Blood Pressure Location Rt brachial Blood Pressure Position Sitting Pulse 74 Pulse Source Pulse Oximeter Temp 97.7 F Temperature Source Tympanic Pulse Oximetry 98 Oxygen Delivery Method Room Air Body Fat 137.2 Body Fat Percentage 41.6 Free Fat Mass 192.4 Muscle Mass 183.0 Visceral Mass 25.0 Water Mass 142.2 BMR 2,771 Intake Visit Reasons: (OV) F/U SWL Film Numberer Required: No Accompanied by: Self / Same As Patient Allergies No Known Allergies Allergy (Verified 04/28/23 10:39) Medication List - Last Reconciled 04/28/23 by Patricia Cervantes PA-C cholecalciferol (vitamin D3) 50 mcg PO DAILY HPI HPI Comments History of Present Illness Details This is the patients second appt for revision of previous LSG. Starting weight was 329 lbs on 03/31, no weight loss Meal plan:wakes at 8am, bed at 10 pm 10am- coffee with 2% milk and 1 tsp sugar 12pm - Premier shake - over 30 minutes 3pm - 4oz (uses scale) steak (2d) or chicken or tuna and lettuce only. and a banana 6pm Atkins bar 8pm - another shake Exercise plan: walks 2 miles 40 minutes - 4d/ week. Jump rope did once. Pre op work up completed as follows: SWL classes - appts - 05/04 RD appts - follow up on 05/20 H pylori -negative Labs - done CXR - normal ECG - Sinus bradycardia with sinus arrhythmia with occasional Premature ventricular complexes Minimal voltage criteria for LVH, may be normal variant ( R in aVL ) Borderline ECG When compared with ECG of 12-FEB-2021 19:50, Premature ventricular complexes are now Present Vent. rate has decreased BY? 38 BPM UGI- s/p LSG with small hiatal hernia UGI - fatty liver [facility] Medical History (Updated 03/31/23 @ 14:57 by Patricia Cervantes PA-C) History of cholecystitis No known health problems Surgical History History of sleeve gastrectomy S/P laparoscopic cholecystectomy Family History Mother Hypothyroidism Father Hypertension Sister No problems noted. Sister No problems noted. Brother No problems noted. Brother No problems noted. Brother Kidney failure Hypertension Son No problems noted. Social History Household Members: Spouse Housing: House Do you presently have visiting nurse or other home services: No Alcohol intake: never Patient Tobacco Use Status: Never used Tobacco Second Hand Smoke Exposure: No service: No Current occupational status: employed Assessment & Plan Assessment & Plan (1) Morbid obesity due to excess calories: Code(s): E66.01 - Morbid (severe) obesity due to excess calories Plan: SWL patient - no weight loss yet, increase in fat mass. Pt has been skipping dinner and not completely understanding his meal or exercise plans. We reviewed these at length today and made changes. 9am - shake 10 am - coffee 12pm - bar 3pm -meal - needsto look at fodd list for better choices 6pm - shake Exercise TBP 4d/week, walk20 minute mile 350 claories on other days. I encouraged hi to send me weekly weights and questions regarding his plan and progress. Next appt with me in 3 weeks. Patient is morbidly obese and is not considered stable at this time. I spent 30 minutes in total with patient reviewing/updating records, examining the patient and counseling the patient on weight management as detailed above. Coding Level of Care Code Est Pt Level 4 (82971) Diagnoses Morbid obesity due to excess calories E66.01
[2023-04-28 10:37] VITALS: BP 137/71; PULSE 74; TEMP 36.5; O2SAT 98; BMI 47.3
== END 2023-04-28 11:06 | disposition home or self-care (01) ==
PROVIDERS: PCP Internal Medicine; Visit Provider Physician Assistant
DX: E66.01 Morbid (severe) obesity due to excess calories (principal)
CPT/HCPCS: 99214

== ENCOUNTER → 2023-04-28 10:29 | Outpatient (BNVA) | payer OTHER, SELFPAY | PROVIDERS: PCP Internal Medicine; Visit Provider Physician Assistant ==

== ENCOUNTER 2023-05-04 09:54 | Outpatient (AMB) | payer OTHER, SELFPAY ==
--- NOTE | 2023-05-04 09:53 | A.OFFWM_ITS ---
Intake Intake Visit Reasons: VIDEO Intake Allergies No Known Allergies Allergy (Verified 04/28/23 10:39) [facility] Medical History (Updated 05/04/23 @ 14:07 by Btezaida Gar) History of cholecystitis No known health problems Surgical History History of sleeve gastrectomy S/P laparoscopic cholecystectomy Family History Mother Hypothyroidism Father Hypertension Sister No problems noted. Sister No problems noted. Brother No problems noted. Brother No problems noted. Brother Kidney failure Hypertension Son No problems noted. Social History Household Members: Spouse Housing: House Do you presently have visiting nurse or other home services: No Alcohol intake: never Patient Tobacco Use Status: Never used Tobacco Second Hand Smoke Exposure: No service: No Current occupational status: employed Behavioral Health Assessment Weight Management Therapy Therapy Notes Details Pt is looking to have weight loss surgery again to help improve his health and quality of life. He reported feeling very tired from work and both his feet hurt very bad. He is currently not in therapy but would like to be. He is looking for support in his personal life. He was in therapy in the past. Pt has no history of problems with drugs or alcohol. He does sometimes have intrusive thoughts of dying when he is very frustrated and will cry/beakdown. Presenting Concerns Referral Source provider Reason for referral weight loss surgery revision evaluation Precipitating Event obesity Living Situation Current Living Situation Own At risk of losing current housing? No Satisfied with current living situation? Yes Comments Patient lives with his and kids age 8 and [address] baby [address] the way. Food/Weight/Diet Expectations of change weight loss and maintenance History/Relationship with food He reported being very picky, he was eating mostly Croatian food, rice, beans, meat, pasta, also drinks soda daily. He would get hungry again after 20 minutes. History/Relationship with weight Pt reported that he has been overweight since he was a child. History/Relationship with dieting LSG around 2011 in [facility]. He went from 400lbs to 230lbs and has gained 100lbs back. Social History Family history and relationship Pt is and has one child and another on the way. He stated that he moved here from [place]. 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 none Education Preferred learning style Auditory, Verbal, Written, Learn by doing and Visual Currently enrolled in educational program? No Interested in further educational program? No Educational Interests/Skills [place] 3[place] 12 for [employer]. 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 No Financial Situation Describe current financial situation Comfortable Financial assistance? None Mental Health and Addiction Treatment Current/Past substance abuse? No Current/Past addictive behavior concerns? No Medical and Physical Health Summary Physical exam in the last year? No Pain Screening Current pain? No Medications Does the patient use complimentary health approaches? No Trauma/Abuse History History of trauma? No Assessment & Plan Assessment & Plan (1) Depression, unspecified: Code(s): F32.A - Depression, unspecified (2) Morbid obesity due to excess calories: Code(s): E66.01 - Morbid (severe) obesity due to excess calories Plan Patient is a 32 year old male looking for weight loss surgery revision. He had surgery years ago very young and has gained most of the weight back. Patient still seems somewhat unclear of what he should be doing. He reported needing a therapist, due to some language barriers, it is unclear the exact reason/struggles he is having. He did report some personal.marital difficulties, mood, and limited to no emotional supports. He will be referred to albanian speaking therapist in the program if there is availability and will be seen again by this mortgage or loan underwriter. Telehealth Telehealth Location of provider rendering services: other Location of patient: address on file Patient Identification confirmed using: Name, : Yes Telehealth method: video Patient verbally consented to treatment: Yes Patient verbally consented to billing insurance company: Yes Patient informed of any privacy concerns related to visit: Yes Minutes spent on Phone/Video with Pt.: 45 Coding Level of Care Code Tele Psy Diag Eval (60122) Diagnoses Depression, unspecified F32.A Morbid obesity due to excess calories E66.01 Time Spent (min) 45
== END 2023-05-04 13:59 | disposition home or self-care (01) ==
LOC: HO.HBST 09:54
PROVIDERS: PCP Internal Medicine; Visit Provider Counselor Mental Health
DX: F32.A Depression, unspecified (principal); E66.01 Morbid (severe) obesity due to excess calories
CPT/HCPCS: 90791

== ENCOUNTER → 2023-05-04 09:54 | Outpatient (BNVA) | payer OTHER, SELFPAY | PROVIDERS: PCP Internal Medicine; Visit Provider Counselor Mental Health ==

== ENCOUNTER → 2023-05-20 10:39 | Outpatient (BNVA) | payer OTHER, SELFPAY | PROVIDERS: PCP Internal Medicine; Visit Provider Dietitian, Registered | DX: E66.9 Obesity, unspecified (principal); Z71.3 Dietary counseling and surveillance | CPT/HCPCS: 97803 ==

== ENCOUNTER 2023-05-24 09:58 | Outpatient (AMB) | payer OTHER, SELFPAY ==
--- NOTE | 2023-05-24 10:00 | A.OFFVIS_ITS ---
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 No weight loss so far. Wakes at 7-7:30 am 8am - coffee - 1 cup with1 tsp sugar and black 9am - Premeir shake 12pm - 4 oz chicken or beef and half of plate lettuce. water 2:30 - Atkins bar 5:30 pm- another shake Exercise - 20 minutes only video - TBP every day. Walk 1 mile 3d/week - 30 minutes. Pre op work up completed as follows: SWL classes -? 05/04 appts - 05/04?- needs referral to Margi ? ? RD appts - follow up on 05/20, cleared H pylori -negative Labs - done CXR - normal ECG -?Sinus bradycardia with sinus arrhythmia with occasional Premature ventricular complexes Minimal voltage criteria for LVH, may be normal variant ( R in aVL ) Borderline ECG When compared with ECG of 12-FEB-2021 19:50, Premature ventricular complexes are now Present Vent. rate has decreased BY? 38 BPM UGI- s/p LSG with small hiatal hernia UGI - fatty liver REPLACED BY [facility] Medical History (Updated 05/04/23 @ 14:07 by Betzaida Gar) History of cholecystitis No known health problems Surgical History (Updated 05/24/23 @ 10:27 by Patricia Cervantes PA-C) History of sleeve gastrectomy S/P laparoscopic cholecystectomy Family History Mother Hypothyroidism Father Hypertension Sister No problems noted. Sister No problems noted. Brother No problems noted. Brother No problems noted. Brother Kidney failure Hypertension Son No problems noted. Social History Household Members: Spouse Housing: House Do you presently have visiting nurse or other home services: No Alcohol intake: never Patient Tobacco Use Status: Never used Tobacco Second Hand Smoke Exposure: No service: No Current occupational status: employed Physical Exam Vital Signs: Last Vital Signs Temp 97.6 F 05/24/23 10:03 Pulse 80 05/24/23 10:03 BP 138/85 05/24/23 10:03 Pulse Ox 98 05/24/23 10:03 Oxygen Delivery Method Room Air 05/24/23 10:03 BMI result Body Mass Index 47.4 Assessment & Plan Assessment & Plan (1) Morbid obesity due to excess calories: Code(s): E66.01 - Morbid (severe) obesity due to excess calories Plan: Pt is preparing for revision of previous LSG. His pre op work up is complete except for BH clearance and weight loss. He meal plan is adequate. His exercise routine needs to change. Start TBP videos for 30 minutes - 4d/week and LS videos 2miles 3 d/ week. He needs to text me his weight weekly so that I can determine if his exercise routine is working for him. Next appt with me in 3 weeks and he is being scheduled for appt with Margi now. Patient is morbidly obese and is not considered stable at this time. I spent 30 minutes in total with patient reviewing/updating records, examining the patient and counseling the patient on weight management as detailed above. (2) History of sleeve gastrectomy: Comment: 2009 performed in [facility] Code(s): Z90.3 - Acquired absence of stomach [part of] Medications: New inulin (Fiber Gummies) 2 grams PO BID 60 tabs 6RF Coding Level of Care Code Est Pt Level 4 (05410) Diagnoses Morbid obesity due to excess calories E66.01 History of sleeve gastrectomy Z90.3
[2023-05-24 10:03] VITALS: BP 138/85; PULSE 80; TEMP 36.4; O2SAT 98; BMI 47.4
== END 2023-05-24 10:30 | disposition home or self-care (01) ==
PROVIDERS: PCP Internal Medicine; Visit Provider Physician Assistant
DX: E66.01 Morbid (severe) obesity due to excess calories (principal); Z90.3 Acquired absence of stomach [part of]
CPT/HCPCS: 99214

== ENCOUNTER → 2023-05-24 09:58 | Outpatient (BNVA) | payer OTHER, SELFPAY | PROVIDERS: PCP Internal Medicine; Visit Provider Physician Assistant ==

== ENCOUNTER 2023-06-03 12:24 | Outpatient (AMB) | payer OTHER, SELFPAY ==
--- NOTE | 2023-06-03 12:23 | MHC.WMTHER ---
Intake Intake Visit Reasons: VIDEO F/U Allergies No Known Allergies Allergy (Verified 05/24/23 10:03) [facility] Medical History (Updated 05/04/23 @ 14:07 by Betzaida Gar) History of cholecystitis No known health problems Surgical History (Updated 05/24/23 @ 10:27 by Patricia Cervantes PA-C) S/P laparoscopic cholecystectomy History of sleeve gastrectomy Family History Mother Hypothyroidism Father Hypertension Sister No problems noted. Sister No problems noted. Brother No problems noted. Brother No problems noted. Brother Kidney failure Hypertension Son No problems noted. Social History Household Members: Spouse Housing: House Do you presently have visiting nurse or other home services: No Alcohol intake: never Patient Tobacco Use Status: Never used Tobacco Second Hand Smoke Exposure: No service: No Current occupational status: employed Behavioral Health Assessment Weight Management Therapy Therapy Notes Details PT is a 32 year old male who has been referred by Betzaida Cheng clinician at [facility] to complete assessment as part of surgical weight-loss plan. PT not cleared today, will need to meet again to finish assessment. Presenting Concerns Referral Source provider at [facility]- LILY Galvin. Reason for referral Weight loss surgery revision evaluation Precipitating Event obesity Living Situation Current Living Situation Own At risk of losing current housing? No Satisfied with current living situation? Yes Comments Patient lives with his and kids age 8 and one baby on the way. Food/Weight/Diet Expectations of change Weight loss and maintenance History/Relationship with food He reported being very picky, he was eating mostly [place] food, rice, beans, meat, pasta, also drinks soda daily. He would get hungry again after 20 minutes. PT believes is daily routine is what impacts his weight gain, as is easier eat fast food sometimes. As well as limitations about things he likes to eat. He's still not able to eat like a regular person but was snacking a lot. Tends to have less appetite in the morning and feeling very hungry towards end of the day. He also, still have to eat slow as she gets nauseous if eating too fast or too much and/or eat/drinks at the same time. History/Relationship with weight Pt stated he's been overweight always. Highest weight over 360Lbs, was able to do down to 230Lbs. Started gaining weight 2 years after surgery. History/Relationship with dieting [facility] around [address] [facility]. He went from 400lbs to 230lbs and has gained 100lbs back. Diet/exercise, meal delivery services. Now using [employer]-meal plan and videos for exercising. Binge Eating Do you frequently eat large amounts of food in short periods of time, not feeling physically hungry? No Do you feel out of control when you eat a large amount of food in a short period of time? No Do you eat large amounts of food rapidly and typically alone? No Night Eating Do you wake up at least once during the night to eat? No If you wake up in the night, do you find that it is necessary to eat something in order to fall back asleep? No Do you have little or no appetite in the morning and feel very hungry in the evening, often overeating between dinner and when you go to bed? Yes Social History Family history and relationship Pt is and has one child and another on the way. He stated that he moved here from [place]. Pt has 6 siblings. (5 from dad side, 1 from his mother's side) Parents are alive. 1 brother lives close, most of his family lives in [place]. No relationship with father, close to siblings now a an adult. 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 Developmental history and status none known Social support and mother are supportive of bariatric surgery. But in general he struggles to open up to others Community support Stated his PCP is on board with him having another bariatric surgery Church/Spirituality Raised as Yazdanism but doesn't practice. Cultural/Ethnic information . M[place] the [place] at age 12. Lives in [place] until 2020 when moved to [place]. Legal Involvement and History Current or historical involvement with the legal system? None Education Highest grade completed 12th grade. Associate degree in Criminology. Preferred learning style Auditory, Verbal, Written, Learn by doing and Visual Currently enrolled in educational program? Yes (Finishing bachelors in Criminal justice. He would like to become a police crime scene technician. ) Interested in further educational program? No Educational Interests/Skills Pt wants to become a police crime scene technician, hopes to loss weight before going to the academy. 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 No Meaningful activities Family activities. , Videogames, watching TV series. Financial Situation Describe current financial situation Comfortable and Occasional struggle Financial assistance? None Service Service? No Mental Health and Addiction Treatment Current/Past substance abuse? No Current/Past addictive behavior concerns? No Psychiatric history Never been in mental health treatment and/or been prescribed with psych. meds. Never hospitalized for mental health or been in Crisis for safety concerns. Medical and Physical Health Summary Additional Medical History not covered in history None reported Sexual History concerns None reported Physical exam in the last year? Yes Pain Screening Current pain? No Pain in the last few months? No Medications Is the patient compliant with medications? Not applicable Does the patient have Davis Guardian in place? Not applicable Does the patient use complimentary health approaches? No Trauma/Abuse History History of trauma? No Questionnaires PHQ-9 Over the last 2 weeks, how often have you been bothered by any of the following problems? 1. Little interest or pleasure in doing things: not at all 2. Feeling down, depressed, or hopeless: several days 3. Trouble falling or staying asleep, or sleeping too much: several days ( Overthinking at bedtime.) 4. Feeling tired or having little energy: not at all 5. Poor appetite or overeating: not at all 6. Feeling bad about yourself - or that you are a failure or have let yourself or your family down: several days 7. Trouble concentrating on things, such as reading the newspaper or watching television: nearly every day 8. Moving or speaking so slowly that other people could have noticed. Or the opposite - being so fidgety or restless that you have been moving around a lot more than usual: not at all 9. Thoughts that you would be better off or of hurting yourself in some way: not at all Total score: 6 Depression Screening Interpretation: Negative Source: Developed by Drs. Masoud Gunderson, Majo Caery, Lul Mojica and colleagues, with an educational radha from [employer]. Binge Eating Scale Group 1 A. I don't feel self-conscious about my wt. or body size when I'm with others. B. I feel concerned about how I look to others, but it normally does not make me fell disappointed with myself C. I do get self-conscious about my appearance and wt. which makes me feel disappointed in myself. D. I feel very self-conscious about my wt. and frequently I feel intense shame and disgust for myself. I try to avoid social contacts because of my self-consciousness. Response Group 1: A Group 2 A. I don't have any difficulty eating slowly in the proper manner. B. Although I seem to gobble down foods, I don't end up feeling stuffed because of eating to much. C. At times, I tend to eat quickly and then, I feel uncomfortably full afterwards. D. I have the habit of bolting down my food, without really chewing it. When this happens I usually feel uncomfortably stuffed because I've eaten to much. Response Group 2: B Group 3 A. I feel capable to control my eating urges when I want to. B. I feel like I have failed to control my eating more than the average person. C. I feel utterly helpless when it comes to feeling in control of my eating urges. D. Because I feel so helpless about controlling my eating I have become very desperate about trying to get control. Response Group 3: A Group 4 A. I don't have the habit of eating when I'm bored. B. I sometimes eat when I'm bored, but often I'm able to get busy and get my mind off food. C. I have a regular habit of eating when I'm bored, but occasionally, I can use some other activity to get my mind off eating. D. I have a strong habit of eating when I'm bored. Nothing seems to help me breath the habit. Response Group 4: A Group 5 A. I'm usually physically hungry when I eat something. B. Occasionally, I eat something on impulse even though I really am not hungry. C. I have the regular habit of eating foods, that I might not really enjoy, to satisfy a hungry feeling even though physically, I don't need the food. D. Although I'm not physically hungry, I get a hungry feeling in my mouth that only seems to be satisfied when I eat a food, like sandwich, that fills my mouth. Sometimes, when I eat the food to satisfy my mouth hunger, I then spit the food out so I won't gain weight. Response Group 5: A Group 6 A. I don't feel any guilt or self-hate after I overeat. B. After I overeat, occasionally I feel guilt or self-hate. C. Almost all the time I experience strong guilt or self-hate after I overeat. Response Group 6: A Binge Eating Score: 1 (Patient only responded 6 questions. Will need to complete form.) Score less than 17 Minimal Risk Score between 18-26 Moderate Risk Score between 27-46 High Risk Assessment & Plan Assessment & Plan (1) Adjustment disorder: Code(s): F43.20 - Adjustment disorder, unspecified Qualifiers: Adjustment disorder type: unspecified type Qualified Code(s): F43.20 - Adjustment disorder, unspecified Plan Pt did not finished BES, so will be seen next week to finish assessment. So far no mental health concerns have been identified to prevent him from surgery however will need to meet again before clearance is provided. He is interested in continue counseling services on a bi-weekly basis. F/up next week. Telehealth Telehealth Location of provider rendering services: practice address Location of patient: other Patient Identification confirmed using: Name, : Yes Telehealth method: video Patient verbally consented to treatment: Yes Patient verbally consented to billing insurance company: Yes Patient informed of any privacy concerns related to visit: Yes Minutes spent on Phone/Video with Pt.: 45 Coding Level of Care Code Established Pt Tele Psytx 45 mins ([id number]) Patient Type Established Diagnoses Adjustment disorder, unspecified type F43.20 Adjustment disorder type: unspecified type Time Spent (min) 45 Comment 12:15-1:00pm
== END 2023-06-03 13:01 | disposition home or self-care (01) ==
LOC: HO.HBST 12:24
PROVIDERS: PCP Internal Medicine; Visit Provider Counselor Mental Health
DX: F43.20 Adjustment disorder, unspecified (principal)
CPT/HCPCS: 90834

== ENCOUNTER → 2023-06-03 12:24 | Outpatient (BNVA) | payer OTHER, SELFPAY | PROVIDERS: PCP Internal Medicine; Visit Provider Counselor Mental Health ==

== ENCOUNTER 2023-06-10 13:45 | Outpatient (AMB) | payer OTHER, SELFPAY ==
--- NOTE | 2023-06-10 13:54 | MHC.WMTHER ---
Intake Intake Visit Reasons: VIDEO F/U Allergies No Known Allergies Allergy (Verified 05/24/23 10:03) [facility] Medical History (Updated 05/04/23 @ 14:07 by Betzaida Gar) History of cholecystitis No known health problems Surgical History (Updated 05/24/23 @ 10:27 by Patricia Cervantes PA-C) S/P laparoscopic cholecystectomy History of sleeve gastrectomy Family History Mother Hypothyroidism Father Hypertension Sister No problems noted. Sister No problems noted. Brother No problems noted. Brother No problems noted. Brother Kidney failure Hypertension Son No problems noted. Social History Household Members: Spouse Housing: House Do you presently have visiting nurse or other home services: No Alcohol intake: never Patient Tobacco Use Status: Never used Tobacco Second Hand Smoke Exposure: No service: No Current occupational status: employed Behavioral Health Assessment Weight Management Therapy Therapy Notes Details PT i a 32 year old male who presents for a f/up to finish assessment as part of surgical weight-loss plan. PT denied any history of mental health treatment and or past hospitalization/crisis for behavioral health. Denies any safety concerns around SI and/or self-other harm, also there is no history of substance use reported. There is also no evidence for stress/emotional-eating, and scores from BES suggest minimal risk for binge eating behavior. PHQ- scores also showed no active symptoms/concerns with depression. Mental status exam is withing normal limits, suggesting person's functioning is not impaired. At this time patient is cleared from the behavioral health standpoint but patient will continue meeting with patient per his request for support. Presenting Concerns Referral Source provider at [facility]- Betzaida Cheng [facility]. Reason for referral Weight loss surgery revision evaluation Precipitating Event obesity Living Situation Current Living Situation Own At risk of losing current housing? No Satisfied with current living situation? Yes Comments Patient lives with his and kids age 8 and one baby on the way. Food/Weight/Diet Expectations of change Weight loss and maintenance History/Relationship with food He reported being very picky, he was eating mostly [place]ian food, rice, beans, meat, pasta, also drinks soda daily. He would get hungry again after 20 minutes. PT believes is daily routine is what impacts his weight gain, as is easier eat fast food sometimes. As well as limitations about things he likes to eat. He's still not able to eat like a regular person but was snacking a lot. Tends to have less appetite in the morning and feeling very hungry towards end of the day. He also, still have to eat slow as she gets nauseous if eating too fast or too much and/or eat/drinks at the same time. History/Relationship with weight Pt stated he's been overweight always. Highest weight over 360Lbs, was able to do down to 230Lbs. Started gaining weight 2 years after surgery. History/Relationship with dieting LSG around 2011 in [facility]. He went from 400lbs to 230lbs and has gained 100lbs back. Diet/exercise, meal delivery services. Now using WMP-meal plan and videos for exercising. Binge Eating Do you frequently eat large amounts of food in short periods of time, not feeling physically hungry? No Do you feel out of control when you eat a large amount of food in a short period of time? No Do you eat large amounts of food rapidly and typically alone? No Night Eating Do you wake up at least once during the night to eat? No If you wake up in the night, do you find that it is necessary to eat something in order to fall back asleep? No Do you have little or no appetite in the morning and feel very hungry in the evening, often overeating between dinner and when you go to bed? Yes Social History Family history and relationship Pt is and has one child and another on the way. He stated that he moved here from [place]. Pt has 6 siblings. (5 from dad side, 1 from his mother's side) Parents are alive. 1 brother lives close, most of his family lives in [place]. No relationship with father, close to siblings now a an adult. 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 Developmental history and status none known Social support and mother are supportive of bariatric surgery. But in general he struggles to open up to others Community support Stated his PCP is on board with him having another bariatric surgery Restorationism/Spirituality Raised as Mandaen but doesn't practice. Cultural/Ethnic information . M[place] the [place] at age 12. Lives in [place] until 2020 when moved to [place]. Legal Involvement and History Current or historical involvement with the legal system? None Education Highest grade completed 12th grade. Associate degree in Criminology. Preferred learning style Auditory, Verbal, Written, Learn by doing and Visual Currently enrolled in educational program? Yes (Finishing bachelors in Criminal justice. 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 ) Interested in further educational program? No Educational Interests/Skills Pt wants to become a police sergeant precinct, hopes to loss weight before going to the academy. Employment Employment Status [employer] (Pt works at the [employer] from 3pm to 12 for [employer] Wants help to find employment? No Meaningful activities Family activities. , Videogames, watching TV series. Financial Situation Describe current financial situation Comfortable and Occasional struggle Financial assistance? None Service Service? No Mental Health and Addiction Treatment Current/Past substance abuse? No Current/Past addictive behavior concerns? No Psychiatric history Never been in mental health treatment and/or been prescribed with psych. meds. Never hospitalized for mental health or been in Crisis for safety concerns. Medical and Physical Health Summary Additional Medical History not covered in history None reported Sexual History concerns None reported Physical exam in the last year? Yes Pain Screening Current pain? No Pain in the last few months? No Medications Is the patient compliant with medications? Not applicable Does the patient have Davis Guardian in place? Not applicable Does the patient use complimentary health approaches? No Trauma/Abuse History History of trauma? No Questionnaires PHQ-9 Over the last 2 weeks, how often have you been bothered by any of the following problems? 1. Little interest or pleasure in doing things: not at all 2. Feeling down, depressed, or hopeless: several days 3. Trouble falling or staying asleep, or sleeping too much: several days ( Overthinking at bedtime.) 4. Feeling tired or having little energy: not at all 5. Poor appetite or overeating: not at all 6. Feeling bad about yourself - or that you are a failure or have let yourself or your family down: several days 7. Trouble concentrating on things, such as reading the newspaper or watching television: nearly every day 8. Moving or speaking so slowly that other people could have noticed. Or the opposite - being so fidgety or restless that you have been moving around a lot more than usual: not at all 9. Thoughts that you would be better off or of hurting yourself in some way: not at all Total score: 6 Depression Screening Interpretation: Negative Source: Developed by Drs. Masoud Gunderson, Majo Carey, Lul Mojica and colleagues, with an educational radha from [employer]. Binge Eating Scale Group 1 A. I don't feel self-conscious about my wt. or body size when I'm with others. B. I feel concerned about how I look to others, but it normally does not make me fell disappointed with myself C. I do get self-conscious about my appearance and wt. which makes me feel disappointed in myself. D. I feel very self-conscious about my wt. and frequently I feel intense shame and disgust for myself. I try to avoid social contacts because of my self-consciousness. Response Group 1: D Group 2 A. I don't have any difficulty eating slowly in the proper manner. B. Although I seem to gobble down foods, I don't end up feeling stuffed because of eating to much. C. At times, I tend to eat quickly and then, I feel uncomfortably full afterwards. D. I have the habit of bolting down my food, without really chewing it. When this happens I usually feel uncomfortably stuffed because I've eaten to much. Response Group 2: D Group 3 A. I feel capable to control my eating urges when I want to. B. I feel like I have failed to control my eating more than the average person. C. I feel utterly helpless when it comes to feeling in control of my eating urges. D. Because I feel so helpless about controlling my eating I have become very desperate about trying to get control. Response Group 3: B Group 4 A. I don't have the habit of eating when I'm bored. B. I sometimes eat when I'm bored, but often I'm able to get busy and get my mind off food. C. I have a regular habit of eating when I'm bored, but occasionally, I can use some other activity to get my mind off eating. D. I have a strong habit of eating when I'm bored. Nothing seems to help me breath the habit. Response Group 4: A Group 5 A. I'm usually physically hungry when I eat something. B. Occasionally, I eat something on impulse even though I really am not hungry. C. I have the regular habit of eating foods, that I might not really enjoy, to satisfy a hungry feeling even though physically, I don't need the food. D. Although I'm not physically hungry, I get a hungry feeling in my mouth that only seems to be satisfied when I eat a food, like sandwich, that fills my mouth. Sometimes, when I eat the food to satisfy my mouth hunger, I then spit the food out so I won't gain weight. Response Group 5: B Group 6 A. I don't feel any guilt or self-hate after I overeat. B. After I overeat, occasionally I feel guilt or self-hate. C. Almost all the time I experience strong guilt or self-hate after I overeat. Response Group 6: A Group 7 A. I don't lose total control of my eating when dieting even after periods when I overeat. B. Sometimes when I eat a forbidden food on a diet, I feel like I blew it and eat even more. C. Frequently, I have the habit of saying to myself, I've blown it now, why not go all the way, when I overeat on a diet. When that happens I eat more. D. I have a regular habit of starting a strict diets for myself but I break the diets by going on an eating binge. My life seems to be either a feast or famine. Response Group 7: A Group 8 A. I rarely eat so much food that I feel uncomfortably stuffed afterwards. B. Usually about once a month, I each such a quantity of food, I end up feeling very stuffed. C. I have regular periods during the month when I eat large amounts of food, either at mealtime or at snacks. D. I eat so much food that I regularly feel quite uncomfortable after eating and sometimes a bit nauseous. Response Group 8: A Group 9 A. My level of calorie intake does not go up very high or go down very low on a regular basis. B. Sometimes after I overeat, I will try to reduce my caloric intake to almost nothing to compensate for the excess calories I've eaten. C. I have a regular habit of overeating during the night. It seems that my routine is not to be hungry in the morning but overeat in the evening. D. In my adult years, I have had week-long periods where I practically starve myself. This follows periods when I overeat. It seems I live a life of either feast or famine. Response Group 9: C Group 10 A. I usually am able to stop eating when I want to. I know when enough is enough. B. Every so often, I experience a compulsion to eat which I can't seem to control. C. Frequently, I experience strong urges to eat which I seem unable to control, but at other times I can control my eating urges. D. I feel incapable of controlling urges to eat. I have a fear of not being able to stop eating voluntarily. Response Group 10: A Group 11 A. I don't have any problem stopping eating when I feel full. B. I usually can stop eating when I feel full but occasionally overeat leaving me feeling uncomfortably stuffed. C. I have a problem stopping eating once I start and usually I feel uncomfortably stuffed after I eat a meal. D. Because I have a problem not being able to stop eating when I want, I sometimes have to induce vomiting to relieve my stuffed feeling. Response Group 11: A Group 12 A. I seem to eat just as much when I'm with others, Family social gatherings as when I'm by myself. B. Sometimes, when I'm with other persons, I don't eat as much as I want to eat because I'm self-conscious about my eating. C. Frequently, I eat only a small amount of food when others are present, because I'm very embarrassed about my eating. D. I feel so ashamed about overeating that I pick times to overeat when I know no one will see me. I feel like a closet eater. Response Group 12: A Group 13 A. I eat three meals a day with only an occasional between meal snack. B. I eat 3 meals a day, but I also normally snack between meals. C. When I am snacking heavily, I get in the habit of skipping regular meals. D. There are regular periods when I seem to be continually eating, with no planned meals. Response Group 13: C Group 14 A. I don't think much about trying to control unwanted eating urges. B. At least some of the time, I feel my thoughts are pre-occupied with trying to control my eating urges. C. I feel that frequently I spend much time thinking about how much I ate or about trying not to eat anymore. D. It seems to me that most of my waking hours are pre-occupied by thoughts about eating or not eating. I feel like I'm constantly struggling not to eat. Response Group 14: A Group 15 A. I don't think about food a great deal. B. I have strong craving for food but they last only for brief periods of time. C. I have days when I can't seem to think about anything else but food. D. Most of my days seem to be pre-occupied with thoughts about food. I feel like I live to eat. Response Group 15: A Group 16 A. I usually know whether or not I'm physically hungry. I take the right portion of food to satisfy me. B. Occasionally, I feel uncertain about knowing whether or not I'm physically hungry. A these times it's hard to know how much food I should take to satisfy me. C. Even though I might know how many calories I should eat, I don't have any idea what is a normal amount of food for me. Response Group 16: B Binge Eating Score: 13 Score less than 17 Minimal Risk Score between 18-26 Moderate Risk Score between 27-46 High Risk Assessment & Plan Assessment & Plan (1) Adjustment disorder: Code(s): F43.20 - Adjustment disorder, unspecified Qualifiers: Adjustment disorder type: unspecified type Qualified Code(s): F43.20 - Adjustment disorder, unspecified Plan: -This provider will continue meeting with client to explore needs and provide support with weight-loss journey as well of habit building for sustained changes. Plan -After completing the assessment and comparing scores from Binge eating scale and PHQ9, at this time, this commercial lines underwriter has no concerns about his mental status, thus PT is cleared from behavioral health standpoint. However, Pt will like to receive ongoing MH support as he is interested in counseling and has no therapist. Telehealth Telehealth Location of provider rendering services: practice address Location of patient: other Patient Identification confirmed using: Name, : Yes Telehealth method: video Patient verbally consented to treatment: Yes Patient verbally consented to billing insurance company: Yes Patient informed of any privacy concerns related to visit: Yes Minutes spent on Phone/Video with Pt.: 30 Coding Level of Care Code Established Pt Tele Psytx 30 mins ([id number]) Patient Type Established Diagnoses Adjustment disorder, unspecified type F43.20 Adjustment disorder type: unspecified type Time Spent (min) 30 Comment 2:00-2:30pm
== END 2023-06-10 15:01 | disposition home or self-care (01) ==
LOC: HO.HBST 14:32
PROVIDERS: PCP Internal Medicine; Visit Provider Counselor Mental Health
DX: F43.20 Adjustment disorder, unspecified (principal)
CPT/HCPCS: 90832

== ENCOUNTER → 2023-06-10 13:45 | Outpatient (BNVA) | payer OTHER, SELFPAY | PROVIDERS: PCP Internal Medicine; Visit Provider Counselor Mental Health ==

== ENCOUNTER 2023-06-16 11:06 | Outpatient (AMB) | payer OTHER, SELFPAY ==
--- NOTE | 2023-06-16 11:08 | A.OFFVIS_ITS ---
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 Since last visit: 8:15 - coffee black without sweetener 10:15 am - RTD shake 12:30- 4 oz chicken or beef with vegetab les (not measured. water 3:30 pm - bar 6pm - shake If hungry at night drinks water, bed at 11:30 am Gym - goes M- F, treadmill - speed? cardio program - 30 minutes, calories burned 500 - 600 calories (?). Lifts weights - not sure weight or reps -30? Pre op work up completed as follows: SWL classes -? 05/04 appts - cleared by Margi ? ? RD appts - follow up on 05/20, cleared H pylori -negative Labs - done CXR - normal ECG -?Sinus bradycardia with sinus arrhythmia with occasional Premature ventricular complexes Minimal voltage criteria for LVH, may be normal variant ( R in aVL ) Borderline ECG When compared with ECG of 12-FEB-2021 19:50, Premature ventricular complexes are now Present Vent. rate has decreased BY? 38 BPM UGI- s/p LSG with small hiatal hernia UGI - fatty liver [facility] Medical History (Updated 05/04/23 @ 14:07 by Betzaida Gar) History of cholecystitis No known health problems Surgical History S/P laparoscopic cholecystectomy History of sleeve gastrectomy Family History Mother Hypothyroidism Father Hypertension Sister No problems noted. Sister No problems noted. Brother No problems noted. Brother No problems noted. Brother Kidney failure Hypertension Son No problems noted. Social History Household Members: Spouse Housing: House Do you presently have visiting nurse or other home services: No Alcohol intake: never Patient Tobacco Use Status: Never used Tobacco Second Hand Smoke Exposure: No service: No Current occupational status: employed Physical Exam Vital Signs: Last Vital Signs Temp 98.6 F 06/16/23 11:11 Pulse 97 06/16/23 11:11 Resp 16 06/16/23 11:11 BP 129/70 06/16/23 11:11 Pulse Ox 98 06/16/23 11:11 Oxygen Delivery Method Room Air 06/16/23 11:11 BMI result Body Mass Index 47.7 Assessment & Plan Assessment & Plan (1) Morbid obesity due to excess calories: Code(s): E66.01 - Morbid (severe) obesity due to excess calories Plan: Pt has gaiennd 2 lbs of fat mass - no muscle mass gain, unclear why he is not losing weight with the meal and exercise plan that he states he is using,.He has completed all pre operative work up. Will add bar in evening because he is hungry. Exercise - trea[place]mill - 5 non consecutive days --speed 3.5, incline 2 - 14, every 2 minutes for at least 350 calories. Weights 15 reps 3 sets each. Pt will text me today after this work out and we will try to address why he is not losing any weight. Next appt with me in 3 weeks. Will refer him to Dr Roberto once he has weight loss progress. We still need his OR records from [facility], will try again to obtain them. Patient is morbidly obese and is not considered stable at this time. I spent 30 minutes in total with patient reviewing/updating records, examining the patient and counseling the patient on weight management as detailed above. (2) History of sleeve gastrectomy: Comment: 2009 performed in [facility] Code(s): Z90.3 - Acquired absence of stomach [part of] Coding Level of Care Code Est Pt Level 4 (55985) Diagnoses Morbid obesity due to excess calories E66.01 History of sleeve gastrectomy Z90.3
[2023-06-16 11:11] VITALS: BP 129/70; PULSE 97; RESP 16; TEMP 37; O2SAT 98; BMI 47.7
== END 2023-06-16 14:14 | disposition home or self-care (01) ==
PROVIDERS: PCP Internal Medicine; Visit Provider Physician Assistant
DX: E66.01 Morbid (severe) obesity due to excess calories (principal); Z90.3 Acquired absence of stomach [part of]
CPT/HCPCS: 99214

== ENCOUNTER → 2023-06-16 11:06 | Outpatient (BNVA) | payer OTHER, SELFPAY | PROVIDERS: PCP Internal Medicine; Visit Provider Physician Assistant ==

== ENCOUNTER 2023-06-28 13:00 | Outpatient (AMB) | payer OTHER, SELFPAY ==
--- NOTE | 2023-06-28 17:51 | A.OFFWM_ITS ---
Intake Intake Visit Reasons: VIDEO BH F/U Allergies No Known Allergies Allergy (Verified 06/16/23 11:10) [facility] Medical History (Updated 05/04/23 @ 14:07 by Betzaida Gar) History of cholecystitis No known health problems Surgical History S/P laparoscopic cholecystectomy History of sleeve gastrectomy Family History Mother Hypothyroidism Father Hypertension Sister No problems noted. Sister No problems noted. Brother No problems noted. Brother No problems noted. Brother Kidney failure Hypertension Son No problems noted. Social History Household Members: Spouse Housing: House Do you presently have visiting nurse or other home services: No Alcohol intake: never Patient Tobacco Use Status: Never used Tobacco Second Hand Smoke Exposure: No service: No Current occupational status: employed Behavioral Health Assessment Weight Management Therapy Therapy Notes Details PT presents for a follow up, he has been cleared but will continue receiving MH counseling with this provider. PT reports he's been frustrated about not being able to lose weight spite he's doing exercise daily and following the meal plan. INTERVENTIONS: active listening, processed challenges with weight loss journey. Processed past life events and provided with constructive feedback. Provided some strategies for assertive/open/direct communication and encourage Pt to think about his goals for counseling. RESPONSE: PT was upset about not being able to lose weight but was cooperative and active in session. PLAN: F/up in 3-4 weeks. Assessment & Plan Assessment & Plan (1) Adjustment disorder: Code(s): F43.20 - Adjustment disorder, unspecified Plan: F/up in 3-4 weeks. Next iris: 07/22 @2:15pm Telehealth Telehealth Location of provider rendering services: other (Home office. [place], [place]) Location of patient: address on file Patient Identification confirmed using: Name, : Yes Telehealth method: voice only Patient verbally consented to treatment: Yes Patient verbally consented to billing insurance company: Yes Patient informed of any privacy concerns related to visit: Yes Minutes spent on Phone/Video with Pt.: 45 Coding Level of Care Code Established Pt Tele Psytx 45 mins ([id number]) Patient Type Established Diagnoses Adjustment disorder F43.20 Time Spent (min) 45
== END 2023-06-28 18:00 | disposition home or self-care (01) ==
LOC: HO.HBST 13:46
PROVIDERS: PCP Internal Medicine; Visit Provider Counselor Mental Health
DX: F43.20 Adjustment disorder, unspecified (principal)
CPT/HCPCS: 90834

== ENCOUNTER → 2023-06-28 13:00 | Outpatient (BNVA) | payer OTHER, SELFPAY | PROVIDERS: PCP Internal Medicine; Visit Provider Counselor Mental Health ==

== ENCOUNTER 2023-07-28 11:30 | Outpatient (AMB) | payer OTHER, SELFPAY ==
--- NOTE | 2023-07-28 09:45 | MHC.OFFVISWM ---
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 He does not have a weight form today - will text me after 2 pm when he can weigh himself today. Had 2 wisdom teeth removed 1 week ago and has been having 4 shakes per day only. Has appt next week with dentist for follow up and will then know if he is cleared to et solids. Has not been exercising since dental surgrey. OR report with pathology from [facility] 2012 has been scanned into his chart. Pre op work up completed as follows: SWL classes -? 05/04 BH appts - cleared by Margi ? ? RD appts - follow up on 05/20, cleared H pylori -negative Labs - done CXR - normal ECG -?Sinus bradycardia with sinus arrhythmia with occasional Premature ventricular complexes Minimal voltage criteria for LVH, may be normal variant ( R in aVL ) Borderline ECG When compared with ECG of 12-FEB-2021 19:50, Premature ventricular complexes are now Present Vent. rate has decreased BY? 38 BPM UGI- s/p LSG with small hiatal hernia UGI - fatty liver [facility] Medical History (Updated 05/04/23 @ 14:07 by Betzaida Gar) History of cholecystitis No known health problems Surgical History S/P laparoscopic cholecystectomy History of sleeve gastrectomy Family History Mother Hypothyroidism Father Hypertension Sister No problems noted. Sister No problems noted. Brother No problems noted. Brother No problems noted. Brother Kidney failure Hypertension Son No problems noted. Social History Household Members: Spouse Housing: House Do you presently have visiting nurse or other home services: No Alcohol intake: never Patient Tobacco Use Status: Never used Tobacco Second Hand Smoke Exposure: No service: No Current occupational status: employed Assessment & Plan Assessment & Plan (1) Morbid obesity due to excess calories: Code(s): E66.01 - Morbid (severe) obesity due to excess calories Plan: SWL follow up - unknown weight today - will text me later with is weight. He sent me his weight later in the day - 334 lbs - no weight loss yet. Pre op work up completed. Will schedule appt for 3 weeks from now and encouraged weekly weight.s Patient is still morbidly obese and is not considered stable at this time. I spent 15 minutes in total speaking with the patient via telephone conference counseling , reviewing records and charting in patients chart. . (2) History of sleeve gastrectomy: Comment: 2009 performed in [facility] Code(s): Z90.3 - Acquired absence of stomach [part of] Telehealth Telehealth Location of provider rendering services: practice address Location of patient: address on file Patient Identification confirmed using: Name, : Yes Telehealth method: voice only Patient verbally consented to treatment: Yes Patient verbally consented to billing insurance company: Yes Patient informed of any privacy concerns related to visit: Yes Coding Level of Care Code Tele Est Pt Level 3 (74537) Diagnoses Morbid obesity due to excess calories E66.01 History of sleeve gastrectomy Z90.3
[2023-07-28 15:25] VITALS: BMI 47.9
== END 2023-07-28 15:29 | disposition home or self-care (01) ==
LOC: HO.HBS 12:03
PROVIDERS: PCP Internal Medicine; Visit Provider Physician Assistant
DX: E66.01 Morbid (severe) obesity due to excess calories (principal); Z90.3 Acquired absence of stomach [part of]
CPT/HCPCS: 99213

== ENCOUNTER → 2023-07-28 11:30 | Outpatient (BNVA) | payer OTHER, SELFPAY | PROVIDERS: PCP Internal Medicine; Visit Provider Physician Assistant ==

== ENCOUNTER 2023-09-08 11:00 | Outpatient (AMB) | payer OTHER, SELFPAY ==
--- NOTE | 2023-09-08 09:32 | A.OFFVIS_ITS ---
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 No weight loss so far. He states he is only eating the below plan and not eating off plan. Had tooth extraction about 1 month ago and has not been able to exercise since then. Has been working extra hours during holiday season, 6d/wk 10- 12 hours per day. Sleeping 8 hours per night. By September 27 will have regular work schedule again. Meal plan:no regular meal plan. when wakes up has a shake - various times 3pm - chicken and vegetables 7 pm - bar - sometimes forgets 10 pm - shake 12:30 - bar Pre op work up completed as follows: [facility] classes -? 05/04 appts - cleared by Margi ? ? RD appts - follow up on 05/20, cleared H pylori -negative Labs - done CXR - normal ECG -?Sinus bradycardia with sinus arrhythmia with occasional Premature ventricular complexes Minimal voltage criteria for LVH, may be normal variant ( R in aVL ) Borderline ECG When compared with ECG of 12-FEB-2021 19:50, Premature ventricular complexes are now Present Vent. rate has decreased BY? 38 BPM UGI- s/p LSG with small hiatal hernia UGI - fatty liver [facility] Medical History (Updated 05/04/23 @ 14:07 by Betzaida Gar) History of cholecystitis No known health problems Surgical History S/P laparoscopic cholecystectomy History of sleeve gastrectomy Family History Mother Hypothyroidism Father Hypertension Sister No problems noted. Sister No problems noted. Brother No problems noted. Brother No problems noted. Brother Kidney failure Hypertension Son No problems noted. Social History Household Members: Spouse Housing: House Do you presently have visiting nurse or other home services: No Alcohol intake: never Patient Tobacco Use Status: Never used Tobacco Second Hand Smoke Exposure: No service: No Current occupational status: employed Physical Exam Vital Signs: BMI result Body Mass Index 47.5 Assessment & Plan Assessment & Plan (1) Morbid obesity due to excess calories: Code(s): E66.01 - Morbid (severe) obesity due to excess calories Plan: No weight loss since starting our program in April. He does not send me weekly weights, and did not weigh himself today until I asked him to. He states he is following the meal plan, but not exercising for the past month. He has completed all pre op work up. I explained to him that if he has varying wake/sleep cycles he should have 1st shake 1-2 hours after waking, then have his total of 2 shakes, 2 bars and 1 meal every 3 hours throughout the day. I have encouraged him once again to send me weekly weights. He plans to restart exercise by September 27. Will schedule appt with me about 3 weeks later to monitor progress. Patient is still morbidly obese and is not considered stable at this time. I spent 25 minutes in total speaking with the patient via video conference counseling , reviewing records and charting in patients chart. . (2) History of sleeve gastrectomy: Comment: 2009 performed in [facility] Code(s): Z90.3 - Acquired absence of stomach [part of] Plan see above Telehealth Telehealth Location of provider rendering services: practice address Location of patient: address on file Patient Identification confirmed using: Name, : Yes Telehealth method: video Patient verbally consented to treatment: Yes Patient verbally consented to billing insurance company: Yes Patient informed of any privacy concerns related to visit: Yes Coding Level of Care Code Tele Est Pt Level 4 (94588) Diagnoses Morbid obesity due to excess calories E66.01 History of sleeve gastrectomy Z90.3
[2023-09-08 11:12] VITALS: BMI 47.5
== END 2023-09-08 11:22 | disposition home or self-care (01) ==
LOC: HO.HBS 11:20
PROVIDERS: PCP Internal Medicine; Visit Provider Physician Assistant
DX: E66.01 Morbid (severe) obesity due to excess calories (principal); Z90.3 Acquired absence of stomach [part of]
CPT/HCPCS: 99214

== ENCOUNTER → 2023-09-08 11:00 | Outpatient (BNVA) | payer OTHER, SELFPAY | PROVIDERS: PCP Internal Medicine; Visit Provider Physician Assistant ==

== ENCOUNTER 2025-06-08 15:37 | Outpatient (REF) | payer OTHER, SELFPAY ==
--- OUTSIDE RECORDS SUMMARY | 2025-06-08 14:45 | XMS_ITS | Encounter Summary ---
Author Organization [employer] Address [address] [facility] 7 [place] [address] Care Team Providers Care Migrant Leader Name Role Phone Nuris Byrd MD Primary Care Provider [phone] Reason for Visit * Reason Comments Annual Exam Encounter Details Date Type Department Care Team (Late st Contact Info) Description 06/08/2025 2:45 PM EDT Office Visit [facility] MED[facility]INE [address] [place] [address] Nuris Byrd MD [address] [place] [address] Mild intermittent asthma without complication; Dietary counseling; Exercise counseling; Class 3 severe obesity without serious comorbidity with body mass index (BMI) of 45.0 to 49.9 in adult, unspecified obesity type Social History Tobacco Use Types Packs/Day Years Used Date Smoking Tobacco: Never Smokeless Tobacco: Never Tobacco Cessation:Counseling Given: Not Answered Depression Answer Date Recorded Patient Health Questionnaire-9 Score 3 06/08/2025 Patient Health Questionnaire-9 Score 3 06/08/2025 Last PHQ-9: Questionnaire Data Not on file 0 06/08/2025 Housing Stability Answer Date Recorded What is your housing situation today? I have dilip araujo 06/01/[address] you li ve. Do you have problems with any of the following? None of the above 06/01/2025 Food Insecurity Answer Date Recorded Within the past 12 months, y ou worried that your food would run out before you got money to buy more: Never True 06/01/2025 Within the past 12 months,th e food you bought just didn't last and you didn't have enough money to get more: Never True 01/2025 Transportation Answer Date Recorded In the past 12 months, has l ack of transportation kept you from medical appts, meetings, work or from getting things needed for daily living? No 06/01/2025 Utilities Answer Date Recorded In the past 12 months, has t he electric, gas, oil or water company threatened to shut off services in your home? No 06/01/2025 Depression Answer Date Recorded Patient Health Questionnaire-2 Score 1 06/08/2025 Internet Access Answer Date Recorded Internet Access Q1 Yes 06/01/2025 Internet Access Q2 Not on file 06/01/2025 Sex and Gender Information Value Date Recorded Sex Assigned at Male 07/27/2022 10:40 AM EDT Legal Sex Male 10:40 AM EDT Gender Identity Male 07/27/2022 10:40 AM EDT Sexual Orientation Choose not to disclose 2021 10:40 AM EDT documented as of this encounter Last Filed Vital Signs Vital Sign Reading Time Taken Comments Blood Pressure 120/80 06/08/2025 2:40 PM EDT Pulse 74 06/08/2025 2:40 PM EDT Temperature 37 C (98.6 F) 06/08/2025 2:40 PM EDT Respiratory Rate 21 06/08/2025 2:40 PM EDT Oxygen Saturation - - Inhaled Oxygen Concentration - - Weight 159 kg (351 lb 3.2 oz) 06/08/2025 2:40 PM EDT Height 182.9 cm (6') 06/08/2025 2:40 PM EDT Body Mass Index 47.63 06/08/2025 2:40 PM EDT documented in this encounter Functional Status * Over the past 2 weeks, how often have you been bothered by any of the following problems? Question Answer Date of Assessment Author Patient Health Questionnaire -2 Score 1 06/08/2025 2:41 PM EDT Fely Martinez MA * Little interest or pleasure in doing things Answer Date of Assessment Author Several days 06/08/2025 2:41 PM EDT Fely Martinez MA * Feeling down, depressed, or hopeless Answer Date of Assessment Author Not at all 06/08/2025 2:41 PM Fely Cox MA * Trouble falling or staying asleep, or sleeping too much Answer Date of Assessment Author Several days 06/08/2025 2:41 PM Fely Cox MA * Feeling tired or having little energy Answer Date of Assessment Author Several days 06/08/2025 2:41 PM Fely Cox MA * Poor appetite or overeating Answer Date of Assessment Author Not at all 06/08/2025 2:41 PM Fely Cox MA * Feeling bad about yourself - or that you are a failure or have let yourself or your family down Answer Date of Assessment Author Not at all 06/08/2025 2:41 PM Fely Cox MA * Trouble concentrating on things, such as reading the newspaper or watching television Answer Date of Assessment Author Not at all 06/08/2025 2:41 PM Fely Cox MA * Moving or speaking so slowly that other people could have noticed? Or the opposite - being so fidgety or restless that you have been moving around a lot more than usual. Answer Date of Assessment Author Not at all 06/08/2025 2:41 PM Fely Cox MA * Thoughts that you would be better off or hurting yourself in some way Answer Date of Assessment Author Not at all 06/08/2025 2:41 PM Fely Cox MA * Patient Health Questionnaire-9 Score Answer Date of Assessment Author 3 06/08/2025 2:41 PM Fely Cox MA * How difficult have these problems made it for you to do your work, take care of things at home, or get along with other people? Answer Date of Assessment Author Not difficult at all 06/08/2025 2:41 PM Fely Ruvalcaba MA * Over the last 2 weeks, how often have you been bothered by any of the following problems? Question Answer Date of Assessment Author Feeling nervous, anxious, or on edge 0 06/08/2025 2:41 PM Fely Cox MA Not being able to stop or co ntrol worrying 0 06/08/2025 2:41 PM EDT Fely Martinez MA Worrying too much about diff erent things 0 06/08/2025 2:41 PM EDT Fely Martinez MA Trouble relaxing 0 06/08/2025 2:41 PM EDT Fely Hair MA Being so restless that it is hard to sit still 0 06/08/2025 2:41 PM EDT Fely Martinez MA Becoming easily annoyed or irritable 0 06/08/2025 2:41 PM EDT Fely Martinez MA Feeling afraid as if somethi ng awful might happen 0 06/08/2025 2:41 PM EDT Fely Martinez MA DUSTIN-7 Total Score 0 06/08/2025 2:41 PM EDT Fely Martinez MA documented as of this encounter Plan of Treatment Scheduled Orders Name Type Priority Associated Diagnoses Orde r Schedule Hemoglobin A1c Lab Routine Class 3 severe obesity without serious comorbidity with body mass index (BMI) of 45.0 to 49.9 in adult, unspecified obesity type ([facility]) Expected: 06/08/2025 (Approximate), Expires: 06/08/2026 Lipid Panel, Standard Lab Routine Class 3 severe obesity without serious comorbidity with body mass index (BMI) of 45.0 to 49.9 in adult, unspecified obesity type Expected: 06/08/2025 (Approximate), Expires: 06/08/2026 TSH W/Reflex to FT4 Lab Routine Class 3 severe obesity without serious comorbidity with body mass index (BMI) of 45.0 to 49.9 in adult, unspecified obesity type Expected: 06/08/2025 (Approximate), Expires: 06/08/2026 documented as of this encounter Visit Diagnoses Diagnosis Mild intermittent asthma without complication Dietary counseling Dietary surveillance and counseling Exercise counseling Class 3 severe obesity without serious comorbidity with body mass index (BMI) of 45.0 to 49.9 in adult, unspecified obesity type documented in this encounter Additional Health Concerns Assessment Noted Time PHQ-9 Depression Total Score: 3 06/08/20 25 2:41 PM EDT documented as of this encounter Care Teams Migrant Leader Relationship Specialty Start Date End Date Nuris Byrd MD [address] [place] [id number] PCP - General Family Medicine 05/05/22 documented as of this encounter
--- OUTSIDE RECORDS SUMMARY | 2025-06-08 17:45 | XMS_ITS | Clinical Summary ---
Author Organization [employer] Address [address] [facility] [address] [facility] [address] [place] [address] Care Team Providers Care Target Setter Name Role Phone Nuris Byrd MD Primary Care Provider [phone] Allergies No known active allergies Medications acetaminophen (Tylenol) 500 MG tablet take 2 tablet by oral route every 4 - 6 hours as needed not to exceed 8 tablets per 24hrs 2 Active albuterol 108 (90 Base) MCG/ACT inhaler inhale 2 puff by inhalation route every 4 - 6 hours as needed 2 Active Diclofenac Sodium 1 % gel apply 2 gram by topical route 3 times every day to the affected area(s) as needed for pain 2 Active omeprazole (PriLOSEC) [address] capsule take 1 capsule by oral route every day 30 minutes to 1 hour before a meal as needed for heartburn 2 Active SUMAtriptan (Imitrex) 100 MG tablet take 1 tablet by oral route once with fluids as early as possible after the onset of a migraine attack;may repeat after 2 hours if headache returns, not to exceed 200mgin 24hrs as needed for migraine 2 Active polyethylene glycol, PEG, 3350 (MiraLax) 17 GM/SCOOP powderIndication s:Constipation, unspecified constipation type 17 grams in 8-12 oz fluid like water at bedtime prn constipation 527 g 2 3 Active D3 Super Strength 50 MCG (2000 UT) capsule Take 50 mcg by mouth in the morning. 3 Active ibuprofen 800 MG tablet Take 800 mg by mouth if needed in the morning, at noon, and at bedtime. 3 Active penicillin v potassium (Veetid) 500 MG tablet TAKE 2 TABLETS BY MOUTH NOW, THEN TAKE 1 TABLET EVERY 6 HOURS UNTIL FINISHED 3 Active DentaGel 1.1 % gel BRUSH TEETH BEFORE BED 3 Active naproxen (Naprosyn) 500 MG tablet Take 1 tablet (500 mg) by mouth 2 times daily. 60 tablet 5 025 Active cyclobenzaprine (Flexeril) 10 MG tablet Take 1 tablet (10 mg) by mouth 3 times daily for 10 days. 30 tablet 5 025 Active Active Problems Problem Noted Date Diagnosed Date Obesity, morbid, BMI 40.0-49.9 09/18/2022 Migraine with aura 04/30/2022 Mild intermittent asthma 04/30/2022 Encounters Date Type Department Care Team Description 06/08/2025 2:45 PM EDT Office Visit [address] [address] Nuris Byrd MD Mild intermittent asthma without complication; Dietary counseling; Exercise counseling; Class 3 severe obesity without serious comorbidity with body mass index (BMI) of 45.0 to 49.9 in adult, unspecified obesity type 06/08/2025 Travel 06/07/[address] [address] Nuris Byrd MD chart prep 06/01/2025 Patient Outreach [address] [address] Nuris Byrd MD Pre-visit Planning (SDOH screening negative and tobacco screening negative) from Last 3 Months Immunizations Immunization Administration Dates Next Due Hep B, adult 08/25/2023,03/24/2023,02/24/2023 Influenza injectable quadriv alent preservative free 08/25/2023 MMR 02/24/2023 Moderna Covid-19 Vaccine 12+ 01/04/2021,12/08/19 21 Moderna Covid-19 Vaccine 6+ Bivalent 10/14/2022 Pfizer Covid-19 Vaccine 12+ 08/25/2023 Tdap 08/08/2020 Social History Tobacco Use Types Packs/Day Years [...] not to disclose 2021 10:40 AM EDT Last Filed Vital Signs Vital Sign Reading Time Taken Comments Blood Pressure 120/80 06/08/2025 2:40 PM EDT Pulse 74 06/08/2025 2:40 PM EDT Temperature 37 C (98.6 F) 06/08/2025 2:40 PM EDT Respiratory Rate 21 06/08/2025 2:40 PM EDT Oxygen Saturation 98% 02/17/2023 3:36 PM EDT Inhaled Oxygen Concentration - - Weight 159 kg (351 lb 3.2 oz) 06/08/2025 2:40 PM EDT Height 182.9 cm (6') 06/08/2025 2:40 PM EDT Body Mass Index 47.63 06/08/2025 2:40 PM EDT Plan of Treatment Health Maintenance Due Date Last Done Comments HIV Screening 1992 Family Planning (PISQ) 2007 HPV Vaccines (1 - Male 3-dose series) 2007 Hepatitis C Screening 2010 Pneumococcal Vaccine: Pediatrics (0 to 5 Years) and At-Risk Patients (6 to 49) Years (1 of 2 - PCV) 2011 COVID-19 Vaccine ( season) 2025 08/25/2023, 10/14/2022, 01/04/2021, Additional history exists Influenza Vaccine (#1) 2025 08/25/2023 SDOH Screening 06/01/2026 06/01/2025 Alcohol/Substance Use Screening 06/08/2026 06/08/2025 Depression Screening 06/08/2026 06/08/2025, 06/08/20 25 Disability Screening 06/08/2026 06/08/2025 Tobacco Screening 06/08/2026 06/08/2025 Lipid Panel 05/05/2027 05/05/2022 DTaP/Tdap/Td Vaccines (2 - Td or Tdap) 08/08/2030 08/08/2020 Zoster Vaccines (1 of 2) 2042 RSV Patients and Patients Aged 60 years or older (1 - 1-dose 75+ series) 2067 Hepatitis B Vaccines Completed 08/25/2023, 03/24/2023, 02/24/2023 HIB Vaccines Aged Out No longer eligi ble based on patient's age to complete this topic Hepatitis A Vaccines Aged Out No long er eligible based on patient's age to complete this topic IPV Vaccines Aged Out No longer eligi ble based on patient's age to complete this topic Meningococcal B Vaccine Aged Out No l onger eligible based on patient's age to complete this topic Meningococcal Vaccine Aged Out No emiliano anmol eligible based on patient's age to complete this topic RSV under 20 months Aged Out No longe r eligible based on patient's age to complete this topic Rotavirus Vaccines Aged Out No longer eligible based on patient's age to complete this topic Procedures Procedure Name Priority Date/Time Associated Diagnosis Comments LIPID PANEL, STANDARD Routine 05/05/2022 10:19 AM EDT from Last 3 Months or Most Recently Relevant to Health Maintenance Results * (ABNORMAL) LIPID PANEL, STANDARD (05/05/2022 10:19 AM EDT) Chol/HDLC Ratio 3.9 <5.0 (calc) [facility] Cholesterol, Total 180 <200 mg/dL [facility] HDL Cholesterol 46 > OR = 40 mg/dL [facility] LDL Cholesterol 114(H) mg/dL (calc) [facility] Comment: Reference range: <100 Desirable range <100 mg/dL for primary prevention; <70 mg/dL for patients with CHD or diabetic patients with > or = 2 CHD risk factors. LDL-C is now calculated using the Xander-Ledezma calculation, which is a validated novel method providing better accuracy than the Friedewald equation in the estimation of LDL-C. Xander SS et al. PATRICK. 2013;310(19): 5181-0939 (http://education.OLED-T.com/faq/SZB878) Non-HDL Cholesterol 134(H) <130 mg/dL (calc) [facility] Comment: For patients with diabetes plus 1 major ASCVD risk factor, treating to a non-HDL-C goal of <100 mg/dL (LDL-C of <70 mg/dL) is considered a therapeutic option. Triglycerides 96 <150 mg/dL [facility] 05/05/2022 10:1 9 AM EDT us Nuris Byrd MD LAB BLOOD ORDERABLES Final Res ult [facility] [address] from Last 3 Months or Most Recently Relevant to Health Maintenance Insurance [facility] Care Teams Target Setter Relationship Specialty Start Date End Date Nuris Byrd MD [address] [place] [address] [place] [id number] PCP - General Family Medicine 05/05/22
--- OUTSIDE RECORDS SUMMARY | 2025-06-08 17:45 | XMS_ITS | Encounter Summary ---
Author Organization [employer] Address [address] [facility] 7 [place] [address] Care Team Providers Care Railroad Car Cleaning Supervisor Name Role Phone Nuris Byrd MD Primary Care Provider [phone] Reason for Visit * Reason Onset Date Comments chart prep 06/07/2025 Encounter Details Date Type Department Care Team (Late st Contact Info) Description 06/07/[address] [facility] [address] [place] [address] Nuris Byrd MD [address] [place] [address] chart prep Social History Tobacco Use Types Packs/Day Years Used Date Smoking Tobacco: Never Assessed Depression Answer Date Recorded Patient Health Questionnaire-9 [...] AM EDT documented as of this encounter Miscellaneous Notes * Telephone Encounter - Fely Martinez MA - 06/07/2025 10:52 AM EDT Chart Prep Labs: not applicable Images: not applicable Referrals: not applicable Vaccines due: Covid, Flu, PCV20, and HPV Screenings: not applicable Overdue care gaps: SBIRT, PHQ-9, DUSTIN-7, and Disability screen documented in this encounter Plan of Treatment Not on file documented as of this encounter Visit Diagnoses Not on filedocumented in this encounter Care Teams Railroad Car Cleaning Supervisor Relationship Specialty Start Date End Date Nuris Byrd MD [address] [place] [id number] PCP - General Family Medicine 05/05/22 documented as of this encounter
--- OUTSIDE RECORDS SUMMARY | 2025-06-08 17:45 | XMS_ITS | Encounter Summary ---
Author Organization [employer] Address [address] [place] [address] Care Team Providers Care Grain Combiner Name Role Phone Nuris Byrd MD Primary Care Provider [phone] Encounter Details Date Type Department Care Team (Latest Contact Info) Description 06/08/2025 Travel Social History Tobacco Use Types Packs/Day Years Used Date Smoking Tobacco: Never Smokeless Tobacco: Never Depression Answer Date Recorded Patient Health Questionnaire-9 [...] AM EDT documented as of this encounter Functional Status * Over the [...] Author Not at all 06/08/2025 2:41 PM EDT Fely Martinez MA * Trouble falling or staying asleep, or sleeping too much Answer Date of Assessment Author Several days 06/08/2025 2:41 PM EDT Fely Martinez MA * Feeling tired or having little energy Answer Date of Assessment Author Several days 06/08/2025 2:41 PM EDT Fely Martinez MA * Poor appetite or overeating Answer Date of Assessment Author Not at all 06/08/2025 2:41 PM EDT Fely Martinez MA * Feeling bad about yourself - or that you are a failure or have let yourself or your family down Answer Date of Assessment Author Not at all 06/08/2025 2:41 PM EDT Fely Martinez MA * Trouble concentrating on things, such as reading the newspaper or watching television Answer Date of Assessment Author Not at all 06/08/2025 2:41 PM EDT Fely Martinez MA * Moving or speaking so slowly that other people could have noticed? Or the opposite - being so fidgety or restless that you have been moving around a lot more than usual. Answer Date of Assessment Author Not at all 06/08/2025 2:41 PM EDT Fely Martinez MA * Thoughts that you would be better off or hurting yourself in some way Answer Date of Assessment Author Not at all 06/08/2025 2:41 PM EDT Fely Martinez MA * Patient Health Questionnaire-9 Score Answer Date of Assessment Author 3 06/08/2025 2:41 PM EDT Fely Martinez MA * How difficult have these problems made it for you to do your work, take care of things at home, or get along with other people? Answer Date of Assessment Author Not difficult at all 06/08/2025 2:41 PM EDT Fely Bell MA * Over the last 2 weeks, how often have you been bothered by any of the following problems? Question Answer Date of Assessment Author Feeling nervous, anxious, or on edge 0 06/08/2025 2:41 PM EDT Fely Martinez MA Not being able to stop or [...] as of this encounter Plan of Treatment Not on file documented as of this encounter Visit Diagnoses Not on filedocumented in this encounter Additional Health Concerns Assessment Noted Time PHQ-9 Depression Total Score: 3 06/08/20 25 2:41 PM EDT documented as of this encounter Care Teams Grain Combiner Relationship Specialty Start Date End Date Nuris Byrd MD [address] [place] [id number] PCP - General Family Medicine 05/05/22 documented as of this encounter
--- OUTSIDE RECORDS SUMMARY | 2025-06-08 17:45 | XMS_ITS | Patient Health Record ---
Author Organization [facility] Address [address] [place] [address] Support Name Relationship Address Phone TANIA FORREST Guarantor Unknown [phone] Reason For Referral No Information Social History Social History Mammo Social Info Question Answer Notes Annual routine referral Given: No Reason not given: Pt declined referral for next routine mammo Date Mammo done Date 06/2019 Colonoscopy Social Info Question Answer Notes GI Info: [facility] Report received Scanned Yes Colonoscopy done on: Date 02/2017 Stool guaiac Social Info Question Answer Notes Date Done done on Stool Guaiac ki t given today Plan Of Treatment No Information
--- OUTSIDE RECORDS SUMMARY | 2025-06-08 17:45 | XMS_ITS | Encounter Summary ---
Author Organization [employer] Address [address] [facility] [address] [facility] [address] [place] [address] Care Team Providers Care Ship Painter Helper Name Role Phone Nuris Byrd MD Primary Care Provider [phone] Encounter Details Date Type Department Care Team ([facility] st Contact Info) Description 02/23/2023 Orders Only [facility] [address] [place] [address] Alisa Figueredo FNP [address] [place] [address] Need for viral immunization (Primary Dx) Social History Tobacco Use Types Packs/Day Years Used Date Smoking Tobacco: Never Assessed Sex and Gender Information Value Date Recorded Sex Assigned at Male 07/27/2022 10:40 AM EDT Legal Sex Male 10:40 AM EDT Gender Identity Male 07/27/2022 10:40 AM EDT Sexual Orientation Choose not to disclose 2021 10:40 AM EDT COVID-19 Exposure Response Date Recorded In the last 10 days, have yo u been in contact with someone who was confirmed or suspected to have Coronavirus/COVID-19? No / Unsure 02/24/2023 10:01 AM EDT documented as of this encounter Plan of Treatment Scheduled Orders Name Type Priority Associated Diagnoses Orde r Schedule Hepatitis B Surface Antigen with Reflex Confirmation Lab Routine Need for viral immunization Expected: 02/23/2023 (Approximate), Expires: 02/24/2024 Hepatitis B Surface Antibody, Qualitative Lab Routine Need for viral immunization Expected: 02/23/2023 (Approximate), Expires: 02/24/2024 documented as of this encounter Visit Diagnoses Diagnosis Need for viral immunization- Primary Need for prophylactic vaccination and inoculation against other viral diseases documented in this encounter Care Teams Ship Painter Helper Relationship Specialty Start Date End Date Nuris Byrd MD [address] [place] [address] PCP - General Family Medicine 05/05/22 documented as of this encounter
[2025-06-08 18:25] LABS: Hemoglobin A1C 110.7033 umol/L; Total Hemoglobin (HGBA1C) 3788.6671 umol/L
[2025-06-08 18:58] LABS: Cholesterol 180 mg/dL (<200); HDL Cholesterol 45 mg/dL (>40); Triglycerides 113 mg/dL (<150)
== END 2025-06-08 15:38 | disposition home or self-care (01) ==
LOC: HO.HHCL 15:37
PROVIDERS: PCP General Practice; Visit Provider General Practice
DX: Z13.1 Encounter for screening for diabetes mellitus (principal); E66.813 Obesity, class 3; Z68.42 Body mass index [BMI] 45.0-49.9, adult
CPT/HCPCS: 36415; 80061; 83036; 84443